=== PATIENT | female | born 1945 | race Hispanic/Latino ===

== ENCOUNTER → 2019-05-14 | Outpatient (CLI) | payer OTHER, MEDICARE ==
[~2019-05-14] MED LIST: ATEN50TA PO; TRAM50TA4 PO
== END | disposition home or self-care (01) ==
LOC: RAH 08:37
PROVIDERS: ATTEND Internal Medicine Cardiovascular Disease
DX: I08.3 Combined rheumatic disorders of mitral, aortic and tricuspid valves (principal)
CPT/HCPCS: 93306

== ENCOUNTER 2019-10-22 14:35 | Emergency (ER) | payer OTHER, MEDICARE ==
[2019-10-22 15:01] LABS: BASOPHILS % (AUTO) 0.5 % (0.0-5.0); EOSINOPHILS % (AUTO) 2.3 % (0.0-8.0); HEMATOCRIT 40.9 % (36-48); LYMPHOCYTES % (AUTO) 9.9 % (21.0-51.0); MEAN CORPUSCULAR HEMOGLOBIN 29.3 pg (27.0-33.0); MEAN CORPUSCULAR HGB CONC 32.8 g/dL (32.0-36.0); MEAN CORPUSCULAR VOLUME 89.3 fL (79-99); MONOCYTES % (AUTO) 6.1 % (3.0-13.0); NEUTROPHILS % (AUTO) 80.7 % (40.0-77.0); PLATELET COUNT (AUTO) 241 K/uL (130-400); RED BLOOD CELL COUNT(AUTO) 4.58 MIL/uL (4.00-5.50); RED CELL DISTRIBUTION WIDTH 12.8 % (11.0-15.5); WHITE BLOOD COUNT (AUTO) 8.2 K/uL (4.8-10.8)
[2019-10-22 15:13] LABS: CREATININE 0.8 mg/dL (0.5-1.5); POTASSIUM 4.8 mmol/L (3.5-5.1)
[2019-10-22] MEDS ORDERED: LIDOCAINE HCL 2% VISCOUS 15 ML UDCUP ONE (15:14)
[2019-10-22] MEDS ORDERED: ASPIRIN 325 MG TABLET ONE (15:14)
[2019-10-22] MEDS ORDERED: MAG HYDROX/AL HYDROX/SIMETH ES 30 ML SUSP UDCUP ONE (15:14)
[2019-10-22 15:18] LABS: ALBUMIN 3.5 g/dL (3.5-5.0); BILIRUBIN,DIRECT 0.1 mg/dL (0.0-0.3); BILIRUBIN,TOTAL 0.6 mg/dL (0.2-1.0); TOTAL PROTEIN, SERUM 6.9 g/dL (6.0-8.3)
[2019-10-22] MEDS ORDERED: ONDANSETRON HCL 4 MG/2 ML VIAL ONE (18:09)
[2019-10-22] MEDS ORDERED: MORPHINE SULFATE 4 MG/1ML SYG ONE (18:10)
[2019-10-22] MEDS ORDERED: NITROGLYCERIN 0.4 MG SL TAB SL ONE (19:29)
== END 2019-10-22 20:02 | disposition home or self-care (01) ==
LOC: EDH 14:35
DX: R10.13 Epigastric pain (principal); I10 Essential (primary) hypertension; Z72.0 Tobacco use
CPT/HCPCS: 36415; 71045; 74176; 80048; 80076; 82550; 83690; 84484 ×2; 85025; 93005 ×2; 96374; 96375; 99285; J2270; J2405

== ENCOUNTER 2019-10-29 17:13 | Inpatient (IN) | payer OTHER, MEDICARE ==
[~2019-10-29] VITALS: Ht 157.5 cm; Wt 55.0 kg
[2019-10-29 18:06] LABS: BASOPHILS % (AUTO) 0.5 % (0.0-5.0); EOSINOPHILS % (AUTO) 2.9 % (0.0-8.0); HEMATOCRIT 40.1 % (36-48); LYMPHOCYTES % (AUTO) 12.2 % (21.0-51.0); MEAN CORPUSCULAR HEMOGLOBIN 29.3 pg (27.0-33.0); MEAN CORPUSCULAR HGB CONC 32.4 g/dL (32.0-36.0); MEAN CORPUSCULAR VOLUME 90.3 fL (79-99); MONOCYTES % (AUTO) 5.3 % (3.0-13.0); NEUTROPHILS % (AUTO) 78.6 % (40.0-77.0); PLATELET COUNT (AUTO) 211 K/uL (130-400); RED BLOOD CELL COUNT(AUTO) 4.44 MIL/uL (4.00-5.50); RED CELL DISTRIBUTION WIDTH 12.5 % (11.0-15.5); WHITE BLOOD COUNT (AUTO) 8.3 K/uL (4.8-10.8)
[2019-10-29 18:20] LABS: CREATININE 0.9 mg/dL (0.5-1.5); POTASSIUM 3.8 mmol/L (3.5-5.1)
[2019-10-29 18:24] LABS: ALBUMIN 3.4 g/dL (3.5-5.0); BILIRUBIN,TOTAL 0.3 mg/dL (0.2-1.0); TOTAL PROTEIN, SERUM 6.7 g/dL (6.0-8.3)
[2019-10-29 18:58] LABS: APPEARANCE,URINE Clear (CLEAR); BILIRUBIN,URINE Negative (NEGATIVE); COLOR,URINE Yellow (YELLOW); GLUCOSE, URINE (UA) Negative (NEGATIVE); KETONES,URINE Negative (NEGATIVE); LEUKOCYTE ESTERASE ,URINE Small (NEGATIVE); NITRATE,URINE Negative (NEGATIVE); OCCULT BLOOD,URINE Negative (NEGATIVE); PH,URINE 5.5 (5.0-8.0); PROTEIN,URINE Negative (NEGATIVE)
[2019-10-29] MEDS ORDERED: ONDANSETRON HCL 4 MG/2 ML VIAL ONE (19:02)
[2019-10-29] MEDS ORDERED: MORPHINE SULFATE 4 MG/1ML SYG ONE ×2 (19:03→21:26)
[2019-10-29 19:31] LABS: BACTERIA,URINE Few /HPF (None Seen); RBC,URINE None Seen /HPF (0-1); SQUAMOUS EPITHELIAL CELL,UR 0-2 /HPF (0-2)
[2019-10-29] MEDS ORDERED: LIDOCAINE HCL 2% VISCOUS 15 ML UDCUP ONE (21:26)
[2019-10-29] MEDS: LACTATED RINGERS 1000ML 1,000 ML IV SCH (22:00)
[2019-10-29] MEDS ORDERED: METOCLOPRAMIDE 10 MG/2 ML VIAL IVP PRN (22:00)
[2019-10-29] MEDS ORDERED: GLUCAGON 1MG KIT 1 MG ML IM PRN (22:00)
[2019-10-29] MEDS ORDERED: ONDANSETRON HCL 4 MG/2 ML VIAL IVP PRN (22:00)
[2019-10-29] MEDS ORDERED: DEXTROSE 50%-WATER 50 ML DISP.SYRIN IV PRN (22:00)
[2019-10-29] MEDS ORDERED: ACETAMINOPHEN 650 MG SUPPOSITORY RC PRN (22:00)
[2019-10-29 22:30] VITALS: BP 156/57
[2019-10-30] VITALS: BP 134/50
[2019-10-30] MEDS: MORPHINE SULFATE 4 MG/1ML SYG IVP PRN ×2 (02:56→07:55)
[2019-10-30 04:00] VITALS: BP 141/56
[2019-10-30 04:38] LABS: BASOPHILS % (AUTO) 0.3 % (0.0-5.0); EOSINOPHILS % (AUTO) 2.8 % (0.0-8.0); HEMATOCRIT 36.8 % (36-48); LYMPHOCYTES % (AUTO) 15.9 % (21.0-51.0); MEAN CORPUSCULAR HEMOGLOBIN 29.4 pg (27.0-33.0); MEAN CORPUSCULAR HGB CONC 32.9 g/dL (32.0-36.0); MEAN CORPUSCULAR VOLUME 89.3 fL (79-99); MONOCYTES % (AUTO) 7.1 % (3.0-13.0); NEUTROPHILS % (AUTO) 73.6 % (40.0-77.0); PLATELET COUNT (AUTO) 187 K/uL (130-400); RED BLOOD CELL COUNT(AUTO) 4.12 MIL/uL (4.00-5.50); RED CELL DISTRIBUTION WIDTH 12.7 % (11.0-15.5); WHITE BLOOD COUNT (AUTO) 6.2 K/uL (4.8-10.8)
[2019-10-30 04:43] LABS: CREATININE 0.7 mg/dL (0.5-1.5); PHOSPHORUS 3.1 mg/dL (2.5-4.9)
[2019-10-30] MEDS: INSULIN R NPO SS1/2 SQ SCH ×4 (06:00→17:43)
[2019-10-30 08:00] VITALS: BP 158/60
--- NOTE | 2019-10-30 08:00 | NUR ---
AM SHIFT ASSESSMENT. NG IN PLACE VIA LT. NARE, CONNECTED TO LOW WALL INTERMITTENT SUCTION, PLACEMENT VERIFIED WITH AIR BOLUS.
[2019-10-30] MEDS ORDERED: FAMOTIDINE/PF 20 MG/2 ML VIAL IV SCH (09:00)
[2019-10-30] MEDS ORDERED: CEFTRIAXONE SODIUM 500 MG VIAL IV SCH (09:00)
--- NOTE | 2019-10-30 11:11 | NUR ---
GI CONSULT ORDERED, DR. FIORELLA TREVINO
--- NOTE | 2019-10-30 11:19 | NUR ---
DR. BARROS RETURNED CALL, ACCT. # GIVEN.
--- NOTE | 2019-10-30 11:42 | NUR ---
NG PLACEMENT CHECKED AGAIN, THIS TIME WITH ASPIRATION WATER. PLACEMENT AGAIN VERIFIED, PT. UNHAPPY AND WANTS TO SEE A
[2019-10-30 12:00] VITALS: BP 143/54
[2019-10-30] MEDS: FAMOTIDINE/PF 20 MG/2 ML VIAL IV SCH ×3 (13:11→22:05)
[2019-10-30] MEDS: CEFTRIAXONE SODIUM 1 GM IV SCH (13:12)
[2019-10-30] MEDS: LACTATED RINGERS 1000ML 1,000 ML IV SCH (13:13)
[2019-10-30] MEDS: HYDROMORPHONE HCL 0.5 MG/0.5 ML ML IVP PRN ×3 (13:37→22:11)
--- NOTE | 2019-10-30 14:54 | NUR ---
[id number] patient signed IM Letter, I faxed IM Letter to [phone] and placed in chart under consent tab
[2019-10-30 16:00] VITALS: BP 185/58
[2019-10-30] MEDS: METRONIDAZOLE 500MG/100ML BAG 100 ML IV SCH (17:31)
--- NOTE | 2019-10-30 18:40 | NUR ---
JUST NOW PT. PULLED OUT NGT AND PCP REPORTS SHE IS DRINKING COFFEE. HAS BEEN FOLLOWING ME AROUND ALL DAY WANTING TUBE OUT AND BEING VERY HUNGRY. COULD NOT MAKE HER UNDERSTAND REASON FOR TUBE.
[2019-10-30 19:00] VITALS: BP 185/60
[2019-10-31] VITALS (7 sets, daily range): BP systolic 142–186; BP diastolic 53–65
[2019-10-31] MEDS: LACTATED RINGERS 1000ML 1,000 ML IV SCH ×2 (00:40→14:00)
[2019-10-31] MEDS: METRONIDAZOLE 500MG/100ML BAG 100 ML IV SCH ×2 (01:44→09:29)
[2019-10-31 04:55] LABS: HEMATOCRIT 35.7 % (36-48); MEAN CORPUSCULAR HEMOGLOBIN 30.1 pg (27.0-33.0); MEAN CORPUSCULAR HGB CONC 33.3 g/dL (32.0-36.0); MEAN CORPUSCULAR VOLUME 90.2 fL (79-99); PLATELET COUNT (AUTO) 167 K/uL (130-400); RED BLOOD CELL COUNT(AUTO) 3.96 MIL/uL (4.00-5.50); RED CELL DISTRIBUTION WIDTH 12.7 % (11.0-15.5); WHITE BLOOD COUNT (AUTO) 5.6 K/uL (4.8-10.8)
[2019-10-31 05:20] LABS: ALBUMIN 2.9 g/dL (3.5-5.0); BILIRUBIN,TOTAL 0.8 mg/dL (0.2-1.0); CREATININE 0.8 mg/dL (0.5-1.5); MAGNESIUM 1.7 mg/dL (1.80-2.40); PHOSPHORUS 3.9 mg/dL (2.5-4.9); POTASSIUM 4.1 mmol/L (3.5-5.1); TOTAL PROTEIN, SERUM 5.8 g/dL (6.0-8.3)
[2019-10-31] MEDS: INSULIN R NPO SS1/2 SQ SCH ×4 (06:00→18:00)
[2019-10-31 06:44] LABS: BAND NEUTROPHILS % (MANUAL) 2 % (0-2); BASOPHILS % (MANUAL) 1 % (0-2); EOSINOPHILS % (MANUAL) 6 % (1-6); LYMPHOCYTES % (MANUAL) 13 % (22-44); MAN.DIFF COMMENT-IMPRESSION MANUAL DIFFERENTIAL; MONOCYTES % (MANUAL) 6 % (2-9); PLATELET MORPHOLOGY COMMENT ADEQUATE; REACTIVE LYMPHOCYTES 1 % (0-0); SEGMENTED NEUTROPHILS % 71 % (40-70)
[2019-10-31] MEDS: CEFTRIAXONE SODIUM 1 GM IV SCH (09:30)
[2019-10-31] MEDS: FAMOTIDINE/PF 20 MG/2 ML VIAL IV SCH (09:30)
[2019-10-31] MEDS: AMLODIPINE BESYLATE 5 MG TAB PO SCH (09:45)
[2019-10-31] MEDS: HYDRALAZINE HCL 20 MG/ML VIAL IV PRN ×2 (09:45→23:14)
[2019-10-31] MEDS ORDERED: MAGNESIUM 2GM PREMIX 50ML 50 ML IV SCH (09:45)
[2019-10-31] MEDS ORDERED: HYDRALAZINE HCL 20 MG/ML VIAL ONE (10:07)
[2019-10-31] MEDS ORDERED: DOCUSATE SODIUM 100 MG CAP PO SCH (10:30)
[2019-10-31] MEDS ORDERED: NITROGLYCERIN 0.4 MG SL TAB SL ONE (10:33)
[2019-10-31] MEDS ORDERED: NITROGLYCERIN 0.4 MG SL TAB SL PRN (10:45)
[2019-10-31] MEDS ORDERED: MORPHINE SULFATE 5 MG/ML VIAL ONE (10:58)
[2019-10-31] MEDS ORDERED: ASPIRIN 325 MG TABLET ONE (10:59)
[2019-10-31] MEDS ORDERED: ASPIRIN 325MG EC TAB 325 MG TABLET.DR PO SCH (11:00)
[2019-10-31] MEDS ORDERED: MORPHINE SULFATE 5 MG/ML VIAL IM SCH (11:00)
--- NOTE | 2019-10-31 11:14 | NUR ---
notified dr. johnston of the consult. explained to dr. johnston that the patient is having chest as the patient claim that after the hydralazine 10 mg that I gave her for elevated blood pressure. notified dr. johnston that the patient is on oxygen 2 liters, 2x of nitro sublingual, morphine 2 mg, aspirin 325mg, troponin and ck has already been drawn. I also read the result of ekg to dr. johnston. he verbalized that to put the patient under dr. winnie rodríguez census, since the patient is the patient of dr. kelvin rodríguez and that he will come to see the patient today.
[2019-10-31] MEDS ORDERED: LIDOCAINE HCL 2% VISCOUS 30 ML, MAG HYDROX/AL HYDROX/SIMETH 30 ML, BELLADONNA-PHENOBARB... PO SCH ×3 (11:45)
[2019-10-31] MEDS ORDERED: LIDOCAINE HCL 2% VISCOUS 30 ML, MAG HYDROX/AL HYDROX/SIMETH 30 ML, DICYCLOMINE HCL 20 MG PO PRN ×3 (12:00)
[2019-10-31] MEDS ORDERED: COMPOUND PO MISCELLANEOUS 1 EACH MISC MISC PRN (12:00)
[2019-10-31] MEDS ORDERED: HYDROCODONE/ACETAMINOPHEN 5/325 MG TAB PO PRN (13:00)
[2019-10-31] MEDS ORDERED: IBUPROFEN 400 MG TABLET PO PRN (15:15)
[2019-10-31] MEDS ORDERED: IBUPROFEN 400 MG TABLET PO SCH (15:15)
[2019-10-31] MEDS: IBUPROFEN 400 MG TABLET PO SCH ×2 (16:55→18:31)
--- NOTE | 2019-10-31 17:19 | NUR ---
D/C PLAN KIMBERLY spoke to pt regarding d/c planning. Pt lives alone. States she attends [employer]. Denies having any home health services or provider. KIMBERLY explained MD recommendations for short term snf/rehab. Pt declined. States she has chronic muscle and joint pain. Plan to home. No needs verbalized or identified. CM to f/u. Addendum: 10/31/19 at 1724 by IRAJ QUARLES CM Amended: Links added.
[2019-10-31] MEDS ORDERED: PANTOPRAZOLE SODIUM 40 MG TABLET.DR PO SCH (19:15)
[2019-10-31] MEDS ORDERED: TRAMADOL HCL 50 MG TABLET PO PRN (19:15)
[2019-10-31] MEDS: KETOROLAC TROMETHAMINE 15MG/ML IM PRN (20:23)
[2019-11-01 03:00] VITALS: BP 155/63
[2019-11-01] MEDS: LACTATED RINGERS 1000ML 1,000 ML IV SCH ×2 (03:20→16:27)
[2019-11-01] MEDS: KETOROLAC TROMETHAMINE 15MG/ML IM PRN ×2 (04:11→08:58)
[2019-11-01] MEDS: INSULIN R NPO SS1/2 SQ SCH ×5 (05:45→23:54)
[2019-11-01 07:20] VITALS: BP 148/67
[2019-11-01] MEDS: AMLODIPINE BESYLATE 5 MG TAB PO SCH (08:58)
[2019-11-01] MEDS: PANTOPRAZOLE SODIUM 40 MG TABLET.DR PO SCH (08:58)
[2019-11-01 12:00] VITALS: BP 153/60
[2019-11-01] MEDS ORDERED: ACETAMINOPHEN-CODEINE 300/30MG TAB PO PRN (13:15)
[2019-11-01 13:20] LABS: CREATININE 0.8 mg/dL (0.5-1.5); POTASSIUM 3.7 mmol/L (3.5-5.1)
[2019-11-01] MEDS ORDERED: MORPHINE SULFATE 2 MG/ML 1ML SYG IVP PRN (14:00)
[2019-11-01 16:00] VITALS: BP 151/59
[2019-11-01] MEDS: TRAMADOL HCL 50 MG TABLET PO PRN (19:50)
[2019-11-01 20:00] VITALS: BP 145/52
--- NOTE | 2019-11-01 23:54 | NUR ---
Patient refused fingerstick check
[2019-11-02] VITALS: BP 145/57
[2019-11-02 03:44] VITALS: BP 141/60
[2019-11-02] MEDS: TRAMADOL HCL 50 MG TABLET PO PRN (04:34)
[2019-11-02 05:59] LABS: HEMATOCRIT 37.3 % (36-48); MEAN CORPUSCULAR HEMOGLOBIN 29.2 pg (27.0-33.0); MEAN CORPUSCULAR HGB CONC 32.2 g/dL (32.0-36.0); MEAN CORPUSCULAR VOLUME 90.8 fL (79-99); PLATELET COUNT (AUTO) 191 K/uL (130-400); RED BLOOD CELL COUNT(AUTO) 4.11 MIL/uL (4.00-5.50); RED CELL DISTRIBUTION WIDTH 12.7 % (11.0-15.5); WHITE BLOOD COUNT (AUTO) 4.8 K/uL (4.8-10.8)
[2019-11-02] MEDS: LACTATED RINGERS 1000ML 1,000 ML IV SCH (06:00)
[2019-11-02] MEDS: INSULIN R NPO SS1/2 SQ SCH (06:00)
[2019-11-02 06:16] LABS: CREATININE 0.8 mg/dL (0.5-1.5); POTASSIUM 4.3 mmol/L (3.5-5.1)
[2019-11-02 08:16] VITALS: BP 168/57
[2019-11-02] MEDS ORDERED: PANT40TA PO (08:57)
[2019-11-02] MEDS ORDERED: AMLO5TAB4 PO (08:57)
[2019-11-02] MEDS: PANTOPRAZOLE SODIUM 40 MG TABLET.DR PO SCH (10:20)
[2019-11-02] MEDS: AMLODIPINE BESYLATE 5 MG TAB PO SCH (10:20)
[2019-11-02 12:04] VITALS: BP 157/59
[2019-11-02] MEDS ORDERED: CALCIUM CARBONATE 500 MG/5 ML ML PO SCH (13:30)
--- NOTE | 2019-11-02 13:40 | NUR ---
DISCHARGE Patient c/o hard stools. AKOSUA Stringer stated to give her prune juice during her rounds with Dr. Auguste right before discharge. Patient refused prune juice and refused to sign refusal. Stated before coming to hospital she had loose stools for 4 days and does not want to now go back home back with loose stools again.
== END 2019-11-02 13:45 | disposition home or self-care (01) | DRG 684 ==
LOC: EDH 17:13 → EDHIP 20:00 → OBSVTOIN 20:00 → 3BH 22:35
PROVIDERS: ADMIT Internal Medicine Pulmonary Disease; ATTEND Internal Medicine Pulmonary Disease
PROC: 0D9670Z Drainage of Stomach with Drainage Device, Via Natural or Artificial Opening (ICD-10-PCS; principal; 2019-10-29)
DX: N17.9 Acute kidney failure, unspecified (principal); E83.42 Hypomagnesemia; I25.10 Atherosclerotic heart disease of native coronary artery without angina pectoris; R07.9 Chest pain, unspecified; R00.1 Bradycardia, unspecified; Z79.899 Other long term (current) drug therapy; Z82.49 Family history of ischemic heart disease and other diseases of the circulatory system; Z95.5 Presence of coronary angioplasty implant and graft
CPT/HCPCS: 36415; 71045; 74018; 74176; 80048; 80053; 81001; 82150; 82550; 82948; 83690; 83735; 84100; 84484; 85025; 85027; 86431; 87088; 93005; G0378; J0360; J0696; J1170; J1885; J2270; J2405; J3475; J3490; J7120

== ENCOUNTER 2019-11-19 15:41 | Observation (INO) | payer OTHER, MEDICARE ==
[~2019-11-19] VITALS: Ht 154.9 cm; Wt 54.5 kg
[~2019-11-19 15:41] MED LIST changes: +AMLO5TAB4 PO; -ATEN50TA PO; +PANT40TA PO
[2019-11-19 16:35] LABS: BASOPHILS % (AUTO) 0.4 % (0.0-5.0); EOSINOPHILS % (AUTO) 3.3 % (0.0-8.0); HEMATOCRIT 38.3 % (36-48); LYMPHOCYTES % (AUTO) 13.6 % (21.0-51.0); MEAN CORPUSCULAR HGB CONC 33.2 g/dL (32.0-36.0); MEAN CORPUSCULAR VOLUME 90.3 fL (79-99); MONOCYTES % (AUTO) 6.5 % (3.0-13.0); NEUTROPHILS % (AUTO) 75.7 % (40.0-77.0); PLATELET COUNT (AUTO) 179 K/uL (130-400); RED BLOOD CELL COUNT(AUTO) 4.24 MIL/uL (4.00-5.50); RED CELL DISTRIBUTION WIDTH 13.2 % (11.0-15.5); WHITE BLOOD COUNT (AUTO) 5.5 K/uL (4.8-10.8)
[2019-11-19 16:51] LABS: INR 0.9 (0.85-1.15); PARTIAL THROMBOPLASTIN TIME 21.5 SEC (26.3-35.5); PROTHROMBIN TIME 9.8 SEC (9.6-11.6)
[2019-11-19 16:53] LABS: CREATININE 0.9 mg/dL (0.5-1.5); POTASSIUM 3.4 mmol/L (3.5-5.1)
[2019-11-19 16:58] LABS: BILIRUBIN,TOTAL 0.3 mg/dL (0.2-1.0); TOTAL PROTEIN, SERUM 6.1 g/dL (6.0-8.3)
[2019-11-19 16:59] LABS: AMYLASE 47 U/L (25-115); CREATINE KINASE, TOTAL 69 U/L (21-232); LIPASE 127 U/L (114-286)
[2019-11-19] MEDS ORDERED: SODIUM CHLORIDE 0.9% 100 ML IV ONE (17:15)
[2019-11-19] MEDS ORDERED: METOPROLOL TARTRATE 1 MG/ML 5ML VIAL IV ONE (17:18)
[2019-11-19] MEDS ORDERED: HYDRALAZINE HCL 20 MG/ML VIAL IV PRN (18:30)
[2019-11-19] MEDS ORDERED: PANTOPRAZOLE SODIUM 80 MG in NS 100ML IVP SCH (18:30)
[2019-11-19] MEDS ORDERED: DIATR MEGLU/DIATRIZOATE SODIUM 30 ML BOTTLE ONE (18:54)
[2019-11-19] MEDS ORDERED: HYDRALAZINE HCL 20 MG/ML VIAL ONE ×2 (19:18→20:45)
[2019-11-19] MEDS ORDERED: ONDANSETRON HCL 4 MG/2 ML VIAL ONE (19:18)
[2019-11-19] MEDS: SUCRALFATE 1 GM TABLET PO SCH (21:00)
[2019-11-19 21:10] LABS: APPEARANCE,URINE Clear (CLEAR); BILIRUBIN,URINE Negative (NEGATIVE); COLOR,URINE Yellow (YELLOW); GLUCOSE, URINE (UA) Negative (NEGATIVE); KETONES,URINE Negative (NEGATIVE); LEUKOCYTE ESTERASE ,URINE Trace (NEGATIVE); NITRATE,URINE Negative (NEGATIVE); OCCULT BLOOD,URINE Negative (NEGATIVE); PH,URINE 7.5 (5.0-8.0); PROTEIN,URINE Negative (NEGATIVE)
[2019-11-19 21:21] LABS: BACTERIA,URINE Few /HPF (None Seen); RBC,URINE None Seen /HPF (0-1); SQUAMOUS EPITHELIAL CELL,UR None Seen /HPF (0-2); WBC,URINE 0-1 /HPF (0-1)
[2019-11-19] MEDS ORDERED: SUCRALFATE 1 GM TABLET ONE (21:27)
[2019-11-19 21:45] VITALS: BP 156/57
--- NOTE | 2019-11-19 22:59 | NUR ---
PT COMPLAINING OF CHEST PAIN, MD BLACKJACK SUPERVISOR PAGED PT STATES SHE TOOK HER OWN SUB NITRO DOWNSTAIRS IN THE EMGERGENCY ROOM CALLED ER NURSE HUNTER, HE SAYS HE DOESN'T KNOW ANYTHING ABOUT IT
[2019-11-19] MEDS ORDERED: ASPI-555 PO (23:06)
[2019-11-19] MEDS ORDERED: NITR0.4T50 SL (23:06)
[2019-11-19] MEDS ORDERED: TRAM50TA4 PO (23:06)
[2019-11-19] MEDS ORDERED: NITROGLYCERIN 1GM/1 INCH PACKET TD ONE (23:24)
[2019-11-19 23:42] LABS: CREATINE KINASE, TOTAL 71 U/L (21-232); MYOGLOBIN 38 ng/mL (10-92); TROPONIN I < 0.04 ng/mL (0.00-0.06)
[2019-11-20] VITALS (8 sets, daily range): BP systolic 117–165; BP diastolic 52–78
[2019-11-20 00:39] LABS: HEMATOCRIT 37.7 % (36-48); MEAN CORPUSCULAR HGB CONC 33.7 g/dL (32.0-36.0); MEAN CORPUSCULAR VOLUME 89.1 fL (79-99); PLATELET COUNT (AUTO) 203 K/uL (130-400); RED BLOOD CELL COUNT(AUTO) 4.23 MIL/uL (4.00-5.50); RED CELL DISTRIBUTION WIDTH 13.2 % (11.0-15.5); WHITE BLOOD COUNT (AUTO) 6.4 K/uL (4.8-10.8)
[2019-11-20 04:51] LABS: HEMATOCRIT 38.3 % (36-48); MEAN CORPUSCULAR HEMOGLOBIN 29.1 pg (27.0-33.0); MEAN CORPUSCULAR HGB CONC 32.9 g/dL (32.0-36.0); MEAN CORPUSCULAR VOLUME 88.5 fL (79-99); PLATELET COUNT (AUTO) 193 K/uL (130-400); RED BLOOD CELL COUNT(AUTO) 4.33 MIL/uL (4.00-5.50); RED CELL DISTRIBUTION WIDTH 13.2 % (11.0-15.5); WHITE BLOOD COUNT (AUTO) 7.2 K/uL (4.8-10.8)
[2019-11-20 05:09] LABS: CREATININE 0.7 mg/dL (0.5-1.5); POTASSIUM 3.7 mmol/L (3.5-5.1)
[2019-11-20] MEDS: NITROGLYCERIN 1GM/1 INCH PACKET TD SCH ×4 (05:26→18:32)
--- NOTE | 2019-11-20 05:37 | NUR ---
, PHARMACY STOCK CLERK HAS NOT RETURN CALL PAGED HOUSE SUP, LINE IS BUSY
--- NOTE | 2019-11-20 05:38 | NUR ---
RADHA FROM ANSWERING SERVICES,STATED SHE PAGED DR. JAMES SINCE KALIA BRIONES IS NOT ANSWERING HIS PHONE\
--- NOTE | 2019-11-20 05:40 | NUR ---
DR. RM CALLED BACK , EXPLAINED THE SITUATION THAT PT HAD TAKEN HER OWN NITROSUB LINGUAL IN ER, AND HAD COMPLAIN TO CHEST PAIN DOWN THERE, HOWEVER, THE NURSE IN THE ER HUNTER STATES HE WAS NEVER NOTIFIED OF SUCH . ALSO AWARE OF PREVIOUS EPISODE OF CHEST PAIN 11/19/19- ON THE FLOOR AND THE ORDERS GIVEN BY ANSELMO AND ALL HER LAB WORK . INCLUDING THE LAST TROPONIN OF 0.08. AWARE THAT PT IS VERY AGGITATED AND ANXIOUS, BUT SHE DOES HAVE SMALL MOMENTS WHEN SHE COMPLAINS THAT SHE IS COLD, OR THE BLOOD PRESSURE COUGH IS TOO TIGHT AND STOPS COMPLAINING OF PAIN. AWARE OF PT'S MEDICAL HX , AND HOME MEDICATIONS CPOE ORDERS TO FOLLOW
[2019-11-20] MEDS ORDERED: METOPROLOL TARTRATE 25 MG TAB ONE (05:54)
[2019-11-20] MEDS ORDERED: MORPHINE SULFATE 2 MG/ML 1ML SYG ONE (05:54)
[2019-11-20] MEDS: METOPROLOL TARTRATE 25 MG TAB PO SCH ×3 (06:00→20:00)
[2019-11-20] MEDS ORDERED: MORPHINE SULFATE 2 MG/ML 1ML SYG IVP ONE (06:00)
--- NOTE | 2019-11-20 06:17 | NUR ---
PT SLEEPING, NOT COMPLAINING OF CHEST PAIN
--- NOTE | 2019-11-20 08:00 | NUR ---
CARDIOLOGY CONSULT PATIENT SEEN BY DR HUSSEIN FOR ELEVATED TROPONIN OF 1.4, PATIENT C/O SEVERE CHEST PAIN LAST NIGHT. DENIES HAVING CHEST PAIN AT THIS TIME. PATIENT WAS ALSO ADMITTED FOR POSSIBLE GI BLEED, SO DR HUSSEIN DID NOT RECOMMEND ANTICOAGULATION AT THIS TIME.
[2019-11-20] MEDS: SUCRALFATE 1 GM TABLET PO SCH ×3 (08:59→20:00)
[2019-11-20] MEDS ORDERED: ASPIRIN 325MG EC TAB 325 MG TABLET.DR PO SCH (10:45)
[2019-11-20] MEDS ORDERED: HEPARIN 25000 UNITS/250 ML D5W 250 ML IV SCH (10:45)
[2019-11-20] MEDS ORDERED: TICAGRELOR 90 MG TABLET PO SCH ×2 (10:45→21:00)
[2019-11-20 11:21] LABS: BASOPHILS % (AUTO) 0.4 % (0.0-5.0); EOSINOPHILS % (AUTO) 3.1 % (0.0-8.0); HEMATOCRIT 37.6 % (36-48); LYMPHOCYTES % (AUTO) 11.1 % (21.0-51.0); MEAN CORPUSCULAR HEMOGLOBIN 29.7 pg (27.0-33.0); MEAN CORPUSCULAR HGB CONC 33.2 g/dL (32.0-36.0); MEAN CORPUSCULAR VOLUME 89.3 fL (79-99); MONOCYTES % (AUTO) 5.8 % (3.0-13.0); PLATELET COUNT (AUTO) 207 K/uL (130-400); RED BLOOD CELL COUNT(AUTO) 4.21 MIL/uL (4.00-5.50); RED CELL DISTRIBUTION WIDTH 13.3 % (11.0-15.5); WHITE BLOOD COUNT (AUTO) 7.1 K/uL (4.8-10.8)
[2019-11-20] MEDS: ACETAMINOPHEN 325 MG TAB PO PRN ×2 (11:36→16:37)
[2019-11-20 12:19] LABS: INR 0.89 (0.85-1.15); PARTIAL THROMBOPLASTIN TIME 24.9 SEC (26.3-35.5); PROTHROMBIN TIME 9.7 SEC (9.6-11.6)
[2019-11-20] MEDS ORDERED: ONDANSETRON HCL 4 MG/2 ML VIAL IVP PRN (12:45)
[2019-11-20] MEDS ORDERED: IPRATROPIUM/ALBUTEROL SULFATE 3 ML SOLUTION IH PRN (12:45)
[2019-11-20] MEDS ORDERED: NITROGLYCERIN 0.4 MG SL TAB SL PRN (12:45)
[2019-11-20] MEDS ORDERED: HYDRALAZINE HCL 20 MG/ML VIAL IV PRN (12:45)
[2019-11-20] MEDS ORDERED: LACTULOSE 20 GM/30 ML UDCUP PO PRN (12:45)
--- NOTE | 2019-11-20 13:00 | NUR ---
GI CONSULT DR PERSAUD CONSULTED FOR POSSIBLE GI BLEED. HOWEVER PATIENT HAS A STABLE HEMOGLOBIN AT 12.7, PATIENT REPORTED TO HAVE HAD SEVERAL DARK STOOLS AT HOME BUT ALSO STATED SHE HAS BEEN TAKING PEPTO BISMOL FOR ABDOMINAL PAIN. DR PERSAUD RECOMMENDED FOR PATIENT TO BE ON PROTONIX AND FOLLOW UP OUTPATIENT.
[2019-11-20] MEDS: LISINOPRIL 10 MG TABLET PO SCH (14:32)
--- NOTE | 2019-11-20 15:22 | NUR ---
INITIAL SW spoke to patient. She states she lives alone but her son, Cirilo Dutta comes to stay with her as needed. Patient could not remember his phone number. Patient states she has no home services. DME: walker with seat, shower chair. Patient states she is able to complete ADL's independently but does not drive. PCP is Dr. Gerber Austin. [facility] in [place]. DCP is home. Addendum: 11/20/19 at 1528 by NATE JOHN SS Amended: Links added.
--- NOTE | 2019-11-20 17:00 | NUR ---
CM NOTE Spoke to pt requested information on senior care placement, provided list of snf-nh in the area. [facility] is not interested in transferring at this point, but may want to later on after she discussed with her PCP as OP. [facility] for now feels safe to return home. and her adult children assist as needed. no dc needs.
[2019-11-20] MEDS: TRAMADOL HCL 50 MG TABLET PO PRN (18:37)
[2019-11-20] MEDS: MORPHINE SULFATE 2 MG/ML 1ML SYG IV PRN (19:59)
[2019-11-20] MEDS: ISOSORBIDE MONO 30MG TAB SR PO SCH (20:00)
[2019-11-20] MEDS: PANTOPRAZOLE 40 MG/VIAL IV SCH (20:00)
[2019-11-21 00:55] VITALS: BP 176/65
[2019-11-21] MEDS: MORPHINE SULFATE 2 MG/ML 1ML SYG IV PRN ×2 (02:23→10:39)
[2019-11-21 04:22] VITALS: BP 136/47
[2019-11-21 04:55] LABS: HEMATOCRIT 39.5 % (36-48); MEAN CORPUSCULAR HEMOGLOBIN 29.5 pg (27.0-33.0); MEAN CORPUSCULAR HGB CONC 32.7 g/dL (32.0-36.0); MEAN CORPUSCULAR VOLUME 90.4 fL (79-99); PLATELET COUNT (AUTO) 215 K/uL (130-400); RED BLOOD CELL COUNT(AUTO) 4.37 MIL/uL (4.00-5.50); RED CELL DISTRIBUTION WIDTH 13.4 % (11.0-15.5); WHITE BLOOD COUNT (AUTO) 9.4 K/uL (4.8-10.8)
[2019-11-21 05:06] LABS: CREATININE 0.9 mg/dL (0.5-1.5); POTASSIUM 3.6 mmol/L (3.5-5.1)
[2019-11-21] MEDS: NITROGLYCERIN 1GM/1 INCH PACKET TD SCH ×3 (06:00→12:00)
[2019-11-21 08:00] VITALS: BP 160/60
[2019-11-21] MEDS ORDERED: ASPIRIN 81MG TAB.CHEW PO SCH (09:00)
[2019-11-21] MEDS ORDERED: ASPIRIN 81 MG EC TAB PO SCH (09:00)
[2019-11-21] MEDS ORDERED: ISOSORBIDE MONO 30MG TAB SR PO SCH (09:00)
[2019-11-21] MEDS: PANTOPRAZOLE 40 MG/VIAL IV SCH (09:52)
[2019-11-21] MEDS: ISOSORBIDE MONO 30MG TAB SR PO SCH (09:53)
[2019-11-21] MEDS: SUCRALFATE 1 GM TABLET PO SCH ×2 (09:53→14:00)
[2019-11-21] MEDS: METOPROLOL TARTRATE 25 MG TAB PO SCH (09:54)
[2019-11-21] MEDS: LISINOPRIL 10 MG TABLET PO SCH (09:54)
[2019-11-21 11:00] VITALS: BP 163/62
[2019-11-21] MEDS ORDERED: PANT40TA25 PO (12:05)
[2019-11-21] MEDS ORDERED: ROSU10TA28 PO (12:26)
[2019-11-21] MEDS: TRAMADOL HCL 50 MG TABLET PO PRN (12:39)
[2019-11-21 16:00] VITALS: BP 155/84
== END 2019-11-21 17:28 | disposition home or self-care (01) ==
LOC: EDH 15:41 → EDHIP 17:40 → 3CH 21:12
PROVIDERS: ADMIT Internal Medicine Pulmonary Disease; ATTEND Internal Medicine Pulmonary Disease
DX: K92.1 Melena (principal); R07.89 Other chest pain; I21.A1 Myocardial infarction type 2; I25.5 Ischemic cardiomyopathy; I25.10 Atherosclerotic heart disease of native coronary artery without angina pectoris; I11.0 Hypertensive heart disease with heart failure; I50.22 Chronic systolic (congestive) heart failure; E78.5 Hyperlipidemia, unspecified; E78.00 Pure hypercholesterolemia, unspecified; Z95.1 Presence of aortocoronary bypass graft; Z79.82 Long term (current) use of aspirin; Z79.899 Other long term (current) drug therapy
CPT/HCPCS: 36415 ×3; 71045 ×2; 74176; 80048 ×2; 80053; 81001; 82150; 82270; 82550 ×2; 82948; 83690; 83874; 84484 ×4; 85025 ×2; 85027 ×3; 85610 ×2; 85730 ×2; 86850; 86900; 86901; 93005 ×4; 93306; 96374; 96375; 96376; 99285; C9113 ×3; G0378 ×48; J0360 ×3; J2405 ×2; J3490; Q9963

== ENCOUNTER → 2019-12-03 | Outpatient (CLI) | payer OTHER, MEDICARE ==
[~2019-12-03] MED LIST changes: -AMLO5TAB4 PO; +ASPI-555 PO; +NITR0.4T50 SL; -PANT40TA PO; +PANT40TA25 PO; +ROSU10TA28 PO
== END | disposition home or self-care (01) ==
LOC: RAH 09:18
PROVIDERS: ATTEND Internal Medicine Gastroenterology
DX: R10.13 Epigastric pain (principal); I70.0 Atherosclerosis of aorta; Z90.49 Acquired absence of other specified parts of digestive tract
CPT/HCPCS: 76700

== ENCOUNTER 2019-12-04 17:04 | Emergency (ER) | payer OTHER, MEDICARE ==
[2019-12-04] MEDS ORDERED: ONDANSETRON HCL 4 MG/2 ML VIAL ONE ×2 (17:54→19:44)
[2019-12-04] MEDS ORDERED: MORPHINE SULFATE 4 MG/1ML SYG ONE (17:55)
[2019-12-04 17:56] LABS: BASOPHILS % (AUTO) 0.8 % (0.0-5.0); EOSINOPHILS % (AUTO) 2.9 % (0.0-8.0); HEMATOCRIT 44.1 % (36-48); LYMPHOCYTES % (AUTO) 20.2 % (21.0-51.0); MEAN CORPUSCULAR HEMOGLOBIN 29.3 pg (27.0-33.0); MEAN CORPUSCULAR HGB CONC 33.1 g/dL (32.0-36.0); MEAN CORPUSCULAR VOLUME 88.6 fL (79-99); MONOCYTES % (AUTO) 6.3 % (3.0-13.0); NEUTROPHILS % (AUTO) 69.3 % (40.0-77.0); PLATELET COUNT (AUTO) 300 K/uL (130-400); RED BLOOD CELL COUNT(AUTO) 4.98 MIL/uL (4.00-5.50); RED CELL DISTRIBUTION WIDTH 13.3 % (11.0-15.5); WHITE BLOOD COUNT (AUTO) 7.3 K/uL (4.8-10.8)
[2019-12-04 18:09] LABS: INR 0.89 (0.85-1.15); PARTIAL THROMBOPLASTIN TIME 26.1 SEC (26.3-35.5); POTASSIUM 3.6 mmol/L (3.5-5.1); PROTHROMBIN TIME 9.7 SEC (9.6-11.6)
[2019-12-04 18:13] LABS: ALBUMIN 3.7 g/dL (3.5-5.0); BILIRUBIN,DIRECT 0.1 mg/dL (0.0-0.3); BILIRUBIN,TOTAL 0.7 mg/dL (0.2-1.0); TOTAL PROTEIN, SERUM 7.5 g/dL (6.0-8.3)
[2019-12-04] MEDS ORDERED: LABETALOL 20 MG/4 ML DISP.SYRIN IV ONE (19:08)
[2019-12-04] MEDS ORDERED: LIDOCAINE HCL 2% VISCOUS 15 ML UDCUP ONE (19:25)
[2019-12-04] MEDS ORDERED: MAG HYDROX/AL HYDROX/SIMETH ES 30 ML SUSP UDCUP ONE (19:25)
[2019-12-04 19:35] LABS: APPEARANCE,URINE Turbid (CLEAR); BILIRUBIN,URINE Negative (NEGATIVE); COLOR,URINE Dark Yellow (YELLOW); GLUCOSE, URINE (UA) Negative (NEGATIVE); KETONES,URINE Trace mg/dL (NEGATIVE); LEUKOCYTE ESTERASE ,URINE Moderate (NEGATIVE); NITRATE,URINE Positive (NEGATIVE); OCCULT BLOOD,URINE Trace (NEGATIVE); PROTEIN,URINE POS 2+ mg/dL (NEGATIVE)
[2019-12-04 19:42] LABS: BACTERIA,URINE Moderate /HPF (None Seen); RBC,URINE None Seen /HPF (0-1)
[2019-12-04] MEDS ORDERED: DICYCLOMINE HCL 10 MG/ML 2ML AMP IM ONE (19:45)
[2019-12-04] MEDS ORDERED: MORPHINE SULFATE 2 MG/ML 1ML SYG ONE (21:08)
== END 2019-12-04 21:52 | disposition home or self-care (01) ==
LOC: EDH 17:04
DX: R10.84 Generalized abdominal pain (principal); R11.0 Nausea; I10 Essential (primary) hypertension; E78.00 Pure hypercholesterolemia, unspecified; Z72.0 Tobacco use; Z95.1 Presence of aortocoronary bypass graft
CPT/HCPCS: 36415; 74176; 80048; 80076; 81001; 82550; 83605; 83690; 84484; 85025; 85610; 85730; 87077; 87088; 87186; 93005; 96372; 96374; 96375; 96376; 99285; J0500; J2270; J2405 ×2

== ENCOUNTER 2020-01-29 11:14 | Emergency (ER) | payer OTHER, MEDICARE ==
[~2020-01-29 11:14] MED LIST changes: -ASPI-555 PO; +ASPI-556 PO; -PANT40TA25 PO; +PANT40TA55 PO
[2020-01-29] MEDS ORDERED: LORAZEPAM 2 MG/ML 1 ML VIAL ONE (12:16)
[2020-01-29] MEDS ORDERED: LIDOCAINE HCL 2% VISCOUS 15 ML UDCUP ONE (12:16)
[2020-01-29] MEDS ORDERED: MAG HYDROX/AL HYDROX/SIMETH ES 30 ML SUSP UDCUP ONE (12:16)
[2020-01-29 12:41] LABS: BASOPHILS % (AUTO) 0.9 % (0.0-5.0); EOSINOPHILS % (AUTO) 2.7 % (0.0-8.0); HEMATOCRIT 41.3 % (36-48); LYMPHOCYTES % (AUTO) 12.4 % (21.0-51.0); MEAN CORPUSCULAR HEMOGLOBIN 28.6 pg (27.0-33.0); MEAN CORPUSCULAR HGB CONC 33.7 g/dL (32.0-36.0); MONOCYTES % (AUTO) 7.2 % (3.0-13.0); NEUTROPHILS % (AUTO) 76.4 % (40.0-77.0); PLATELET COUNT (AUTO) 280 K/uL (130-400); RED BLOOD CELL COUNT(AUTO) 4.86 MIL/uL (4.00-5.50); WHITE BLOOD COUNT (AUTO) 6.8 K/uL (4.8-10.8)
[2020-01-29 12:54] LABS: POTASSIUM 3.3 mmol/L (3.5-5.1)
[2020-01-29 13:06] LABS: ALBUMIN 3.9 g/dL (3.5-5.0); BILIRUBIN,TOTAL 0.7 mg/dL (0.2-1.0); TOTAL PROTEIN, SERUM 7.5 g/dL (6.0-8.3)
== END 2020-01-29 15:58 | disposition home or self-care (01) ==
LOC: EDH 11:14
DX: R10.9 Unspecified abdominal pain (principal); E78.00 Pure hypercholesterolemia, unspecified; I10 Essential (primary) hypertension; Z88.5 Allergy status to narcotic agent
CPT/HCPCS: 36415; 74018; 80053; 83690; 84484; 85025; 93005; 96372; 99285; J2060

== ENCOUNTER 2020-01-30 13:22 | Emergency (ER) | payer OTHER, MEDICARE ==
[2020-01-30] MEDS ORDERED: SODIUM CHLORIDE 0.9% 1000ML 1,000 ML IV ONE (13:23)
[2020-01-30] MEDS ORDERED: PANTOPRAZOLE 40 MG/VIAL IVP ONE (13:23)
[2020-01-30] MEDS ORDERED: ONDANSETRON ODT 4 MG TAB ONE (13:59)
[2020-01-30] MEDS ORDERED: LIDOCAINE HCL 2% VISCOUS 15 ML UDCUP ONE (13:59)
[2020-01-30] MEDS ORDERED: MAG HYDROX/AL HYDROX/SIMETH ES 30 ML SUSP UDCUP ONE (13:59)
[2020-01-30 14:24] LABS: BASOPHILS % (AUTO) 0.9 % (0.0-5.0); EOSINOPHILS % (AUTO) 3.6 % (0.0-8.0); HEMATOCRIT 40.2 % (36-48); LYMPHOCYTES % (AUTO) 15.1 % (21.0-51.0); MEAN CORPUSCULAR HEMOGLOBIN 29.1 pg (27.0-33.0); MEAN CORPUSCULAR HGB CONC 33.6 g/dL (32.0-36.0); MEAN CORPUSCULAR VOLUME 86.6 fL (79-99); MONOCYTES % (AUTO) 6.8 % (3.0-13.0); NEUTROPHILS % (AUTO) 73.1 % (40.0-77.0); PLATELET COUNT (AUTO) 291 K/uL (130-400); RED BLOOD CELL COUNT(AUTO) 4.64 MIL/uL (4.00-5.50); RED CELL DISTRIBUTION WIDTH 13.2 % (11.0-15.5); WHITE BLOOD COUNT (AUTO) 5.8 K/uL (4.8-10.8)
[2020-01-30 14:36] LABS: POTASSIUM 3.2 mmol/L (3.5-5.1)
[2020-01-30 14:41] LABS: ALBUMIN 3.8 g/dL (3.5-5.0); BILIRUBIN,TOTAL 0.6 mg/dL (0.2-1.0); TOTAL PROTEIN, SERUM 7.3 g/dL (6.0-8.3)
[2020-01-30] MEDS ORDERED: SUCRALFATE 1 GM TABLET ONE (15:42)
[2020-01-30] MEDS ORDERED: HYOSCYAMINE SULFATE 0.125 MG TAB.SUBL SL ONE (15:42)
[2020-01-30] MEDS ORDERED: POTASSIUM CHLORIDE 20 MEQ ERTAB PO ONE (15:48)
[2020-01-30] MEDS ORDERED: KETOROLAC TROMETHAMINE 15MG/ML ONE (16:43)
== END 2020-01-30 21:02 | disposition home or self-care (01) ==
LOC: EDH 13:22
DX: R10.13 Epigastric pain (principal); R63.4 Abnormal weight loss; I10 Essential (primary) hypertension; E78.5 Hyperlipidemia, unspecified; Z72.0 Tobacco use; Z88.6 Allergy status to analgesic agent
CPT/HCPCS: 36415; 80053; 83690; 84484; 85025; 96372; 96374; 99284; C9113; J1885; J7030

== ENCOUNTER 2020-05-11 02:34 | Emergency (ER) | payer OTHER, MEDICARE ==
[2020-05-11] MEDS ORDERED: SODIUM CHLORIDE 0.9% 500ML 500 ML IV ONE (02:35)
[2020-05-11] MEDS ORDERED: ONDANSETRON HCL 4 MG/2 ML VIAL ONE (02:52)
[2020-05-11] MEDS ORDERED: PANTOPRAZOLE 40 MG/VIAL ONE (02:52)
[2020-05-11] MEDS ORDERED: MORPHINE SULFATE 4 MG/1ML SYG ONE (02:52)
[2020-05-11 02:56] LABS: BASOPHILS % (AUTO) 0.8 % (0.0-5.0); EOSINOPHILS % (AUTO) 4.1 % (0.0-8.0); HEMATOCRIT 37.9 % (36-48); LYMPHOCYTES % (AUTO) 15.3 % (21.0-51.0); MEAN CORPUSCULAR HEMOGLOBIN 29.1 pg (27.0-33.0); MEAN CORPUSCULAR HGB CONC 33.5 g/dL (32.0-36.0); MEAN CORPUSCULAR VOLUME 86.9 fL (79-99); MONOCYTES % (AUTO) 6.5 % (3.0-13.0); PLATELET COUNT (AUTO) 209 K/uL (130-400); RED BLOOD CELL COUNT(AUTO) 4.36 MIL/uL (4.00-5.50); RED CELL DISTRIBUTION WIDTH 13.2 % (11.0-15.5); WHITE BLOOD COUNT (AUTO) 6.3 K/uL (4.8-10.8)
[2020-05-11 03:05] LABS: CREATININE 0.8 mg/dL (0.5-1.5)
[2020-05-11 03:09] LABS: ALBUMIN 3.5 g/dL (3.5-5.0); BILIRUBIN,TOTAL 0.4 mg/dL (0.2-1.0); TOTAL PROTEIN, SERUM 6.2 g/dL (6.0-8.3)
[2020-05-11 03:14] LABS: INR 0.91 (0.85-1.15); PARTIAL THROMBOPLASTIN TIME 24.6 SEC (26.3-35.5); PROTHROMBIN TIME 9.9 SEC (9.6-11.6)
[2020-05-11 03:19] LABS: B-TYPE NATRIURETIC PEPTIDE 273 pg/mL (0-100)
[2020-05-11] MEDS ORDERED: IOHEXOL-350 75 ML VIAL IV ONE (03:33)
[2020-05-11] MEDS ORDERED: KETOROLAC TROMETHAMINE 15MG/ML ONE (05:02)
[2020-05-11 05:22] LABS: APPEARANCE,URINE Clear (CLEAR); BILIRUBIN,URINE Negative (NEGATIVE); COLOR,URINE Yellow (YELLOW); GLUCOSE, URINE (UA) Negative (NEGATIVE); KETONES,URINE Negative (NEGATIVE); LEUKOCYTE ESTERASE ,URINE Trace (NEGATIVE); NITRATE,URINE Negative (NEGATIVE); OCCULT BLOOD,URINE Negative (NEGATIVE); PROTEIN,URINE Negative (NEGATIVE); UROBILINOGEN,URINE 0.2 mg/dL (0.2-1.0)
[2020-05-11 05:51] LABS: BACTERIA,URINE Rare /HPF (None Seen); RBC,URINE None Seen /HPF (0-1); WBC,URINE 0-1 /HPF (0-1)
[2020-05-11] MEDS ORDERED: FAMOTIDINE/PF 20 MG/2 ML VIAL IV ONE (05:59)
== END 2020-05-11 06:49 | disposition home or self-care (01) ==
LOC: EDH 02:34
DX: R10.13 Epigastric pain (principal); R10.32 Left lower quadrant pain; K29.70 Gastritis, unspecified, without bleeding; I10 Essential (primary) hypertension; E78.00 Pure hypercholesterolemia, unspecified; Z88.6 Allergy status to analgesic agent
CPT/HCPCS: 36415; 71045; 74177; 76705; 80053; 81001; 82550; 83605; 83690; 83880; 84484; 85025; 85610; 85730; 93005; 96361 ×2; 96374; 96375; 99285; C9113; J1885; J2270; J2405; J3490; J7040; Q9967

== ENCOUNTER 2021-01-08 15:07 | Observation (INO) | payer OTHER, MEDICARE ==
[~2021-01-08] VITALS: Ht 157.5 cm; Wt 45.8 kg
[2021-01-08 15:50] LABS: BASOPHILS % (AUTO) 0.6 % (0.0-5.0); EOSINOPHILS % (AUTO) 4.3 % (0.0-8.0); HEMATOCRIT 30.3 % (36-48); LYMPHOCYTES % (AUTO) 13.2 % (21.0-51.0); MEAN CORPUSCULAR HEMOGLOBIN 27.3 pg (27.0-33.0); MEAN CORPUSCULAR VOLUME 88.1 fL (79-99); MONOCYTES % (AUTO) 4.7 % (3.0-13.0); NEUTROPHILS % (AUTO) 76.8 % (40.0-77.0); PLATELET COUNT (AUTO) 317 K/uL (130-400); RED BLOOD CELL COUNT(AUTO) 3.44 MIL/uL (4.00-5.50); RED CELL DISTRIBUTION WIDTH 14.2 % (11.0-15.5); WHITE BLOOD COUNT (AUTO) 7.7 K/uL (4.8-10.8)
[2021-01-08 16:04] LABS: PROTHROMBIN TIME 10.9 SEC (9.6-11.6)
[2021-01-08 16:05] LABS: PARTIAL THROMBOPLASTIN TIME 24.6 SEC (26.3-35.5)
[2021-01-08 16:16] LABS: B-TYPE NATRIURETIC PEPTIDE 176 pg/mL (0-100)
[2021-01-08 16:17] LABS: CREATININE 0.9 mg/dL (0.5-1.5); POTASSIUM 3.8 mmol/L (3.5-5.1)
[2021-01-08 16:22] LABS: ALBUMIN 3.4 g/dL (3.5-5.0); BILIRUBIN,TOTAL 0.6 mg/dL (0.2-1.0); TOTAL PROTEIN, SERUM 6.7 g/dL (6.0-8.3)
[2021-01-08] MEDS ORDERED: ONDANSETRON HCL 4 MG/2 ML VIAL ONE (17:03)
[2021-01-08] MEDS ORDERED: MORPHINE 2 MG SYG (2MG/1ML) ONE (17:03)
[2021-01-08] MEDS ORDERED: FAMOTIDINE/PF 20 MG/2 ML VIAL IV ONE (17:04)
[2021-01-08 18:36] LABS: APPEARANCE,URINE Clear (CLEAR); BILIRUBIN,URINE Negative (NEGATIVE); COLOR,URINE Yellow (YELLOW); GLUCOSE, URINE (UA) Negative (NEGATIVE); KETONES,URINE Negative (NEGATIVE); LEUKOCYTE ESTERASE ,URINE Small (NEGATIVE); NITRATE,URINE Negative (NEGATIVE); OCCULT BLOOD,URINE Trace (NEGATIVE); PROTEIN,URINE Negative (NEGATIVE); UROBILINOGEN,URINE 0.2 mg/dL (0.2-1.0)
[2021-01-08 19:14] LABS: RBC,URINE 0-1 /HPF (0-1)
[2021-01-08 19:15] LABS: BACTERIA,URINE Few /HPF (None Seen); MUCUS,URINE Few LPF (None Seen); SQUAMOUS EPITHELIAL CELL,UR Few /HPF (0-2)
[2021-01-08] MEDS ORDERED: MAG HYDROX/AL HYDROX/SIMETH ES 30 ML SUSP UDCUP ONE (20:09)
[2021-01-08] MEDS ORDERED: LIDOCAINE HCL 2% VISCOUS 15 ML UDCUP ONE (20:09)
[2021-01-08] MEDS ORDERED: ONDANSETRON HCL 4 MG/2 ML VIAL IV PRN (20:45)
[2021-01-08] MEDS ORDERED: SODIUM CHLORIDE 0.9% 1000ML 1,000 ML IV SCH (20:45)
[2021-01-08] MEDS ORDERED: ACETAMINOPHEN 325 MG TAB PO PRN ×2 (20:45)
[2021-01-08 21:06] LABS: HEMOGLOBIN A1C 5.7 % (4.0-6.0)
[2021-01-09] MEDS ORDERED: NITROGLYCERIN 0.4 MG SL TAB SL PRN (06:30)
[2021-01-09] MEDS ORDERED: ZOLPIDEM TARTRATE 5 MG TAB PO PRN (06:30)
[2021-01-09] MEDS ORDERED: GUAIFENESIN-DM 200/20 MG 10 ML PO PRN (06:30)
[2021-01-09] MEDS ORDERED: ONDANSETRON HCL 4 MG/2 ML VIAL IV PRN (06:30)
[2021-01-09] MEDS ORDERED: HYDROMORPHONE 1MG AMP (1MG/ML) IV PRN (06:30)
[2021-01-09] MEDS ORDERED: MAG HYDROX/AL HYDROX/SIMETH ES 30 ML SUSP UDCUP PO PRN (06:30)
[2021-01-09] MEDS ORDERED: LACTULOSE 20 GM/30 ML UDCUP PO PRN (06:30)
[2021-01-09] MEDS ORDERED: ACETAMINOPHEN 325 MG TAB PO PRN ×2 (06:30)
[2021-01-09] MEDS ORDERED: TRAMADOL HCL 50 MG TABLET PO PRN (06:45)
[2021-01-09] MEDS ORDERED: DEXTROSE 50%-WATER 50 ML DISP.SYRIN IV PRN (06:45)
[2021-01-09] MEDS ORDERED: GLUCAGON 1MG KIT 1 MG ML IM PRN (06:45)
[2021-01-09] MEDS ORDERED: ASPIRIN 81MG TAB.CHEW ONE (07:17)
[2021-01-09] MEDS ORDERED: PANTOPRAZOLE SODIUM 40 MG TABLET.DR ONE (07:18)
[2021-01-09] MEDS ORDERED: PANTOPRAZOLE SODIUM 40 MG TABLET.DR PO SCH (07:25)
[2021-01-09] MEDS: INSULIN HUMULIN R 100 UNIT/ML 3ML SQ SCH ×4 (07:30→21:00)
[2021-01-09 08:46] LABS: MEAN CORPUSCULAR HEMOGLOBIN 27.5 pg (27.0-33.0); MEAN CORPUSCULAR VOLUME 88.8 fL (79-99); RED BLOOD CELL COUNT(AUTO) 3.38 MIL/uL (4.00-5.50); RED CELL DISTRIBUTION WIDTH 14.3 % (11.0-15.5); WHITE BLOOD COUNT (AUTO) 6.2 K/uL (4.8-10.8)
[2021-01-09] MEDS ORDERED: FAMOTIDINE/PF 20 MG/2 ML VIAL IV SCH (09:00)
[2021-01-09 09:05] LABS: ALBUMIN 3.1 g/dL (3.5-5.0); BILIRUBIN,DIRECT 0.1 mg/dL (0.0-0.3); BILIRUBIN,TOTAL 0.4 mg/dL (0.2-1.0); CREATININE 0.7 mg/dL (0.5-1.5); POTASSIUM 4.2 mmol/L (3.5-5.1); TOTAL PROTEIN, SERUM 6.3 g/dL (6.0-8.3)
[2021-01-09] MEDS ORDERED: HYDROMORPHONE 1MG AMP (1MG/ML) ONE (10:56)
[2021-01-09] MEDS ORDERED: METRONIDAZOLE 500MG/100ML BAG 100 ML ONE (14:05)
[2021-01-09] MEDS ORDERED: LEVOFLOXACIN 500 MG/D5W 100 ML 100 ML ONE (14:05)
[2021-01-09] MEDS ORDERED: SODIUM CHLORIDE 0.9% 1000ML 1,000 ML IV ONE (14:06)
[2021-01-09 16:08] LABS: HEMATOCRIT 29.3 % (36-48)
[2021-01-09 16:54] VITALS: BP 175/47
[2021-01-09] MEDS: ASPIRIN 81 MG EC TAB PO SCH (17:18)
[2021-01-09] MEDS: LEVOFLOXACIN 500 MG/D5W 100 ML 100 ML IV SCH (17:18)
[2021-01-09] MEDS: METRONIDAZOLE 500MG/100ML BAG 100 ML IVPB SCH ×2 (17:19→21:33)
[2021-01-09] MEDS: SODIUM CHLORIDE 0.9% 1000ML 1,000 ML IV SCH (17:19)
[2021-01-09] MEDS: ATORVASTATIN CALCIUM 20 MG TABLET PO SCH (17:23)
[2021-01-09 20:29] VITALS: BP 160/49
[2021-01-09] MEDS: PANTOPRAZOLE 40 MG/VIAL IVP SCH (21:33)
[2021-01-09 23:25] VITALS: BP 177/43
[2021-01-10] MEDS: LABETALOL 20 MG/4 ML DISP.SYRIN IV PRN ×2 (00:33→08:27)
[2021-01-10 04:06] VITALS: BP 158/54
[2021-01-10] MEDS: METRONIDAZOLE 500MG/100ML BAG 100 ML IVPB SCH ×2 (05:32→14:30)
[2021-01-10] MEDS: SODIUM CHLORIDE 0.9% 1000ML 1,000 ML IV SCH ×2 (05:32→11:55)
[2021-01-10] MEDS: INSULIN HUMULIN R 100 UNIT/ML 3ML SQ SCH ×3 (05:34→16:30)
[2021-01-10 05:52] LABS: HEMATOCRIT 28.2 % (36-48); MEAN CORPUSCULAR HGB CONC 30.9 g/dL (32.0-36.0); MEAN CORPUSCULAR VOLUME 87.6 fL (79-99); RED BLOOD CELL COUNT(AUTO) 3.22 MIL/uL (4.00-5.50); RED CELL DISTRIBUTION WIDTH 14.2 % (11.0-15.5)
[2021-01-10 05:56] LABS: CREATININE 0.7 mg/dL (0.5-1.5); POTASSIUM 3.8 mmol/L (3.5-5.1)
[2021-01-10 07:52] VITALS: BP 183/47
[2021-01-10] MEDS ORDERED: IOHEXOL 350 MG/ML 100ML INFUS..BTL IV ONE (08:14)
[2021-01-10] MEDS ORDERED: MORPHINE 2 MG SYG (2MG/1ML) IVP SCH (09:00)
[2021-01-10] MEDS ORDERED: CLOPIDOGREL BISULFATE 75 MG TAB PO SCH (09:00)
[2021-01-10] MEDS: LEVOFLOXACIN 500 MG/D5W 100 ML 100 ML IV SCH (09:54)
[2021-01-10] MEDS: PANTOPRAZOLE 40 MG/VIAL IVP SCH (09:54)
[2021-01-10] MEDS: ASPIRIN 81 MG EC TAB PO SCH (09:54)
[2021-01-10 12:11] VITALS: BP 126/76
[2021-01-10 16:49] VITALS: BP 141/45
[2021-01-10] MEDS: ATORVASTATIN CALCIUM 20 MG TABLET PO SCH (17:03)
== END 2021-01-10 18:39 | disposition home or self-care (01) ==
LOC: EDH 15:07 → EDHIP 20:31 → 3AH 01-09 15:52
PROVIDERS: ADMIT Internal Medicine; ATTEND Internal Medicine
DX: A04.9 Bacterial intestinal infection, unspecified (principal); I11.0 Hypertensive heart disease with heart failure; I50.22 Chronic systolic (congestive) heart failure; I25.119 Atherosclerotic heart disease of native coronary artery with unspecified angina pectoris; I25.5 Ischemic cardiomyopathy; G89.29 Other chronic pain; E78.00 Pure hypercholesterolemia, unspecified; E78.5 Hyperlipidemia, unspecified; D64.9 Anemia, unspecified; I08.0 Rheumatic disorders of both mitral and aortic valves; I25.2 Old myocardial infarction; K55.9 Vascular disorder of intestine, unspecified; Z87.19 Personal history of other diseases of the digestive system; Z95.1 Presence of aortocoronary bypass graft; Z79.899 Other long term (current) drug therapy; Z88.5 Allergy status to narcotic agent
CPT/HCPCS: 36415 ×3; 71045 ×2; 74174; 74176; 80048; 80053 ×2; 81001; 82150; 82550; 82948 ×7; 83036; 83605; 83690 ×2; 83880; 84484 ×4; 85014; 85018; 85025; 85027 ×2; 85610; 85730; 93005 ×3; 96361; 96365; 96366; 96367; 96375 ×2; 96376; 99285; C9113 ×2; G0378 ×45; J1170; J1956 ×2; J2405; J3490 ×5; J7030 ×2; Q9967; 80076

== ENCOUNTER → 2022-04-11 | Outpatient (CLI) | payer OTHER, MEDICARE ==
[2022-04-11 12:59] LABS: ALBUMIN 3.9 g/dL (3.5-5.0); POTASSIUM 5.4 mmol/L (3.5-5.1); TOTAL PROTEIN, SERUM 7.6 g/dL (6.0-8.3)
== END | disposition home or self-care (01) ==
LOC: LAB 08:08
PROVIDERS: ATTEND Internal Medicine Cardiovascular Disease
DX: I10 Essential (primary) hypertension (principal)
CPT/HCPCS: 36415; 80053

== ENCOUNTER 2022-04-30 08:31 | Day surgery (SDC) | payer OTHER, MEDICARE ==
[2022-04-25 16:20] LABS: APPEARANCE,URINE SL CLOUDY (CLEAR); BILIRUBIN,URINE NEGATIVE (NEGATIVE); COLOR,URINE YELLOW (YELLOW); GLUCOSE, URINE (UA) NEGATIVE (NEGATIVE); KETONES,URINE 5 mg/dL (NEGATIVE); LEUKOCYTE ESTERASE ,URINE MODERATE (NEGATIVE); NITRATE,URINE POSITIVE (NEGATIVE); OCCULT BLOOD,URINE SMALL (NEGATIVE); PH,URINE 5.5 (5.0-8.0); PROTEIN,URINE NEGATIVE (NEGATIVE); UROBILINOGEN,URINE 0.2 mg/dL (0.2-1.0)
[2022-04-25 16:20] LABS: BASOPHILS % (AUTO) 0.7 % (0.0-5.0); EOSINOPHILS % (AUTO) 5.7 % (0.0-8.0); HEMATOCRIT 33.9 % (36-48); LYMPHOCYTES % (AUTO) 14.5 % (21.0-51.0); MEAN CORPUSCULAR VOLUME 90.4 fL (79-99); MONOCYTES % (AUTO) 5.4 % (3.0-13.0); NEUTROPHILS % (AUTO) 73.1 % (40.0-77.0); PLATELET COUNT (AUTO) 356 K/uL (130-400); RED BLOOD CELL COUNT(AUTO) 3.75 MIL/uL (4.00-5.50); RED CELL DISTRIBUTION WIDTH 15.3 % (11.0-15.5); WHITE BLOOD COUNT (AUTO) 9.4 K/uL (4.8-10.8)
[2022-04-25 16:29] LABS: POTASSIUM 4.2 mmol/L (3.5-5.1)
[2022-04-25 16:30] LABS: INR 0.93 (0.85-1.15); PROTHROMBIN TIME 10.2 SEC (9.6-11.6)
[2022-04-25 16:31] LABS: PARTIAL THROMBOPLASTIN TIME 26.2 SEC (26.3-35.5)
[2022-04-25 16:41] LABS: BACTERIA,URINE Moderate /HPF (None Seen); RBC,URINE 0-1 /HPF (0-1)
[2022-04-25 16:44] LABS: SQUAMOUS EPITHELIAL CELL,UR Few /HPF (0-2); TRANSITIONAL EPI CELLS,URINE Few /HPF (None Seen)
[2022-04-25 16:48] LABS: B-TYPE NATRIURETIC PEPTIDE 68 pg/mL (0-100)
[2022-04-27 11:19] VITALS: BP 162/59
[~2022-04-30] VITALS: Ht 152.4 cm; Wt 50.3 kg
[~2022-04-30 08:31] MED LIST changes: +0.9% NACL 500ML IV.SOLN 500 ML IV SCH; +ALEN70TA80 PO; +AMLO-257 PO; +ATOR40TA71 PO; +DONE5TAB33 PO; +FERR-72 PO; +ISOS30TA92 PO; +LISI40TA9 PO; -NITR0.4T50 SL; +PANT40TA54 PO; -PANT40TA55 PO; -ROSU10TA28 PO
[2022-04-30] MEDS ORDERED: 0.9%NACL 1000ML 1,000 ML IV ONE (09:18)
[2022-04-30] MEDS ORDERED: LIDOCAINE HCL 400MG/20ML VIAL ONE (12:04)
[2022-04-30] MEDS ORDERED: MEPERIDINE-PF 25 MG/ML SYG ONE (12:04)
[2022-04-30] MEDS ORDERED: HEPARIN 10,000 UNIT/10ML (1,000 UNIT/ML) VIAL ONE (12:04)
[2022-04-30] MEDS ORDERED: IOHEXOL-350 50ML VIAL IV ONE (12:04)
[2022-04-30] MEDS ORDERED: IOHEXOL 350 MG/ML 100ML INFUS..BTL IV ONE (12:04)
[2022-04-30] MEDS ORDERED: MIDAZOLAM HCL 1 MG/ML 2ML VIAL ONE (12:18)
== END 2022-04-30 13:44 | disposition home or self-care (01) ==
LOC: DAH 08:31
PROVIDERS: ATTEND Internal Medicine Cardiovascular Disease
DX: I25.10 Atherosclerotic heart disease of native coronary artery without angina pectoris (principal); I11.0 Hypertensive heart disease with heart failure; I50.9 Heart failure, unspecified; Z95.1 Presence of aortocoronary bypass graft; E78.5 Hyperlipidemia, unspecified; Z79.01 Long term (current) use of anticoagulants; Z79.899 Other long term (current) drug therapy; Z88.8 Allergy status to other drugs, medicaments and biological substances; Z90.710 Acquired absence of both cervix and uterus; Z90.49 Acquired absence of other specified parts of digestive tract; Z53.8 Procedure and treatment not carried out for other reasons
CPT/HCPCS: 71045; 80048; 83880; 85025; 85610; 85730; 87077; 87088; 87186; 81001; 36415; 93005; C1894; C1893; J3490; J7030; J2250; J2175; J1644; Q9967; A4663; A4606; A4223 ×2

== ENCOUNTER 2022-10-24 12:02 | Emergency (ER) | payer OTHER, MEDICARE ==
[~2022-10-24] VITALS: Ht 142.2 cm; Wt 52.2 kg
[~2022-10-24 12:02] MED LIST changes: -0.9% NACL 500ML IV.SOLN 500 ML IV SCH
[2022-10-24 12:10] VITALS: BP 125/58
[2022-10-24 12:52] LABS: BASOPHILS % (AUTO) 0.9 % (0.0-5.0); LYMPHOCYTES % (AUTO) 20.2 % (21.0-51.0); MEAN CORPUSCULAR HEMOGLOBIN 28.9 pg (27.0-33.0); MEAN CORPUSCULAR HGB CONC 31.3 g/dL (32.0-36.0); MEAN CORPUSCULAR VOLUME 92.5 fL (79-99); MONOCYTES % (AUTO) 6.7 % (3.0-13.0); NEUTROPHILS % (AUTO) 66.8 % (40.0-77.0); PLATELET COUNT (AUTO) 292 K/uL (130-400); RED BLOOD CELL COUNT(AUTO) 3.46 MIL/uL (4.00-5.50); RED CELL DISTRIBUTION WIDTH 14.9 % (11.0-15.5); WHITE BLOOD COUNT (AUTO) 5.4 K/uL (4.8-10.8)
[2022-10-24 12:59] LABS: POTASSIUM 4.4 mmol/L (3.5-5.1)
[2022-10-24 13:05] LABS: ALBUMIN 3.5 g/dL (3.5-5.0); TOTAL PROTEIN, SERUM 6.8 g/dL (6.0-8.3)
[2022-10-24] MEDS ORDERED: ACETAMINOPHEN 500 MG TABLET PO ONE (14:00)
== END 2022-10-24 14:25 | disposition home or self-care (01) ==
LOC: EDH 12:02
DX: G89.29 Other chronic pain (principal); M54.50 Low back pain, unspecified
CPT/HCPCS: 36415; 72100; 80053; 85025

== ENCOUNTER 2022-12-01 09:53 | Emergency (ER) | payer OTHER, MEDICARE ==
[~2022-12-01] VITALS: Ht 149.9 cm; Wt 54.4 kg
[2022-12-01 10:17] LABS: EOSINOPHILS % (AUTO) 3.5 % (0.0-8.0); HEMATOCRIT 33.3 % (36-48); LYMPHOCYTES % (AUTO) 17.1 % (21.0-51.0); MEAN CORPUSCULAR HEMOGLOBIN 28.8 pg (27.0-33.0); MEAN CORPUSCULAR HGB CONC 31.5 g/dL (32.0-36.0); MEAN CORPUSCULAR VOLUME 91.2 fL (79-99); MONOCYTES % (AUTO) 4.3 % (3.0-13.0); NEUTROPHILS % (AUTO) 73.8 % (40.0-77.0); PLATELET COUNT (AUTO) 300 K/uL (130-400); RED BLOOD CELL COUNT(AUTO) 3.65 MIL/uL (4.00-5.50); RED CELL DISTRIBUTION WIDTH 14.3 % (11.0-15.5); WHITE BLOOD COUNT (AUTO) 6.1 K/uL (4.8-10.8)
[2022-12-01] MEDS ORDERED: MORPHINE 2 MG SYG IVP ONE ×2 (10:30→11:30)
[2022-12-01] MEDS ORDERED: ONDANSETRON 4MG INJ IVP ONE (10:30)
[2022-12-01 10:31] LABS: CREATININE 1.2 mg/dL (0.5-1.5); POTASSIUM 4.9 mmol/L (3.5-5.1)
[2022-12-01 10:37] LABS: ALBUMIN 3.7 g/dL (3.5-5.0); TOTAL PROTEIN, SERUM 7.3 g/dL (6.0-8.3)
[2022-12-01 10:56] LABS: APPEARANCE,URINE CLOUDY (CLEAR); BILIRUBIN,URINE NEGATIVE (NEGATIVE); COLOR,URINE LIGHT-YELLOW (YELLOW); GLUCOSE, URINE (UA) NEGATIVE (NEGATIVE); KETONES,URINE NEGATIVE (NEGATIVE); LEUKOCYTE ESTERASE ,URINE 500 Leu/uL (NEGATIVE); NITRATE,URINE NEGATIVE (NEGATIVE); PROTEIN,URINE NEGATIVE (NEGATIVE); UROBILINOGEN,URINE 0.2 mg/dL (0.2-1.0)
[2022-12-01 11:22] LABS: BACTERIA,URINE Moderate /HPF (None Seen); RBC,URINE 0-1 /HPF (0-1); SQUAMOUS EPITHELIAL CELL,UR Rare /HPF (0-2); WBC,URINE 26-50 /HPF (0-1)
[2022-12-01] MEDS ORDERED: IOHEXOL-350 75 ML VIAL IV ONE (12:51)
[2022-12-01] MEDS ORDERED: NITROGLYCERIN 0.4 MG SL TAB SL ONE (13:47)
[2022-12-01] MEDS ORDERED: CEFTRIAXONE 1G VIAL IVP ONE (14:30)
[2022-12-01 15:19] VITALS: BP 180/54
[2022-12-01] MEDS ORDERED: CEPH500T PO (15:20)
== END 2022-12-01 15:53 | disposition home or self-care (01) ==
LOC: EDH 09:53
DX: N39.0 Urinary tract infection, site not specified (principal); E78.00 Pure hypercholesterolemia, unspecified; I10 Essential (primary) hypertension; Z79.82 Long term (current) use of aspirin; Z79.899 Other long term (current) drug therapy; Z88.5 Allergy status to narcotic agent; Z20.822 Contact with and (suspected) exposure to COVID-19
CPT/HCPCS: 99284; 74177; 96374; 71045; 96375; 87635; 84484 ×2; 80053; 83690; 85025; 87077; 87088; 87186; 87804 ×2; 81001; 36415; 96376; 93005 ×2; C9803; J0696; J2405; Q9967

== ENCOUNTER 2024-04-23 19:41 | Inpatient (IN) | payer MEDICARE ==
[~2024-04-23] VITALS: Ht 157.5 cm; Wt 58.9 kg
[~2024-04-23 19:41] MED LIST changes: +CEPH500T PO
[2024-04-23 20:20] LABS: BASOPHILS # (AUTO) 0.03 K/uL (0.00-0.20); BASOPHILS % (AUTO) 0.3 % (0.0-5.0); EOSINOPHILS # (AUTO) 0.15 K/uL (0.00-0.70); EOSINOPHILS % (AUTO) 1.5 % (0.0-8.0); HEMATOCRIT 36.2 % (36-48); IMMATURE GRANULOCYTE ABSOLUTE 0.05 K/uL (0-1); LYMPHOCYTES # (AUTO) 0.8 K/uL (1.0-4.8); LYMPHOCYTES % (AUTO) 8.2 % (21.0-51.0); MEAN CORPUSCULAR HEMOGLOBIN 28.6 pg (27.0-33.0); MEAN CORPUSCULAR VOLUME 89.2 fL (79-99); MONOCYTES # (AUTO) 0.5 K/uL (0.1-1.0); MONOCYTES % (AUTO) 4.7 % (3.0-13.0); NEUTROPHILS # (AUTO) 8.4 K/uL (1.8-7.7); NEUTROPHILS % (AUTO) 84.8 % (40.0-77.0); PLATELET COUNT (AUTO) 248 K/uL (130-400); RED BLOOD CELL COUNT(AUTO) 4.06 MIL/uL (4.00-5.50); RED CELL DISTRIBUTION WIDTH 13.4 % (11.0-15.5); WHITE BLOOD COUNT (AUTO) 9.9 K/uL (4.8-10.8)
[2024-04-23] MEDS ORDERED: CHOL-34 PO (20:26)
[2024-04-23] MEDS ORDERED: DULO30CA52 PO (20:26)
[2024-04-23] MEDS ORDERED: TRAZ-185 PO (20:26)
[2024-04-23] MEDS ORDERED: LIDOP TP (20:26)
[2024-04-23] MEDS ORDERED: ISOS30TA92 PO (20:26)
[2024-04-23] MEDS ORDERED: DONE5TAB5 PO (20:26)
[2024-04-23] MEDS ORDERED: FERS325 PO (20:26)
[2024-04-23] MEDS ORDERED: CLON0.5T4 PO (20:26)
[2024-04-23] MEDS ORDERED: AMLO2.5T4 PO (20:26)
[2024-04-23] MEDS ORDERED: CYAN-106 PO (20:26)
[2024-04-23] MEDS ORDERED: ATOR40TA71 PO (20:26)
[2024-04-23] MEDS ORDERED: PANT40TA PO (20:26)
[2024-04-23] MEDS ORDERED: LISI40TA9 PO (20:26)
[2024-04-23] MEDS ORDERED: ALEN70TA80 PO (20:26)
[2024-04-23] MEDS ORDERED: MAGN400O17 PO (20:26)
[2024-04-23] MEDS ORDERED: SENN8.6T32 PO (20:26)
[2024-04-23] MEDS ORDERED: TRAM50TA4 PO (20:26)
[2024-04-23] MEDS ORDERED: DOCU100C33 PO (20:26)
[2024-04-23] MEDS: FENTanyl CITRate PF 50 MCG/1 ML 2ML VIAL IVP STA (20:31)
[2024-04-23 20:32] LABS: INR 0.96 (0.85-1.15); PROTHROMBIN TIME 10.4 SEC (9.6-11.6)
[2024-04-23 20:34] LABS: PARTIAL THROMBOPLASTIN TIME 27.9 SEC (26.3-35.5)
[2024-04-23] MEDS ORDERED: IOHEXOL-350 75 ML VIAL IV ONE (20:38)
[2024-04-23] MEDS: FENTanyl CITRate PF 50 MCG/1 ML 2ML VIAL IVP ONE (22:32)
[2024-04-24] VITALS (19 sets, daily range): BP systolic 118–176; BP diastolic 53–86; PULSE 65–97; RESP 15–20; TEMP 97.2–100.3; O2SAT 93
[2024-04-24] MEDS ORDERED: NITROGLYCERIN 0.4 MG SL TAB SL PRN (02:00)
[2024-04-24] MEDS: cefTRIAXone 1G VIAL IV SCH (02:07)
[2024-04-24] MEDS: morPHINE 2 MG SYG IV PRN (02:27)
[2024-04-24] MEDS: hydrALAZine 20MG/ML VIAL IV PRN (02:28)
[2024-04-24 07:02] LABS: BASOPHILS # (AUTO) 0.02 K/uL (0.00-0.20); BASOPHILS % (AUTO) 0.4 % (0.0-5.0); EOSINOPHILS # (AUTO) 0.02 K/uL (0.00-0.70); EOSINOPHILS % (AUTO) 0.4 % (0.0-8.0); IMMATURE GRANULOCYTE ABSOLUTE 0.04 K/uL (0-1); LYMPHOCYTES # (AUTO) 0.4 K/uL (1.0-4.8); LYMPHOCYTES % (AUTO) 8.1 % (21.0-51.0); MEAN CORPUSCULAR HEMOGLOBIN 28.5 pg (27.0-33.0); MEAN CORPUSCULAR HGB CONC 32.7 g/dL (32.0-36.0); MEAN CORPUSCULAR VOLUME 87.1 fL (79-99); MONOCYTES # (AUTO) 0.3 K/uL (0.1-1.0); MONOCYTES % (AUTO) 5.2 % (3.0-13.0); NEUTROPHILS # (AUTO) 4.4 K/uL (1.8-7.7); NEUTROPHILS % (AUTO) 85.1 % (40.0-77.0); PLATELET COUNT (AUTO) 232 K/uL (130-400); RED BLOOD CELL COUNT(AUTO) 3.79 MIL/uL (4.00-5.50); RED CELL DISTRIBUTION WIDTH 13.5 % (11.0-15.5); WHITE BLOOD COUNT (AUTO) 5.2 K/uL (4.8-10.8)
[2024-04-24 07:07] LABS: APPEARANCE,URINE CLEAR (CLEAR); BILIRUBIN,URINE NEGATIVE (NEGATIVE); COLOR,URINE LIGHT-YELLOW (YELLOW); GLUCOSE, URINE (UA) NEGATIVE (NEGATIVE); KETONES,URINE NEGATIVE (NEGATIVE); LEUKOCYTE ESTERASE ,URINE NEGATIVE Leu/uL (NEGATIVE); NITRATE,URINE NEGATIVE (NEGATIVE); PROTEIN,URINE NEGATIVE (NEGATIVE); UROBILINOGEN,URINE 0.2 mg/dL (0.2-1.0)
[2024-04-24 07:16] LABS: ADD UA MICROSCOPIC NO
[2024-04-24 07:36] LABS: ALBUMIN 3.1 g/dL (3.5-5.0); BILIRUBIN,TOTAL 0.7 mg/dL (0.2-1.0); MAGNESIUM 1.9 mg/dL (1.80-2.40); POTASSIUM 4.5 mmol/L (3.5-5.1); TOTAL PROTEIN, SERUM 6.8 g/dL (6.0-8.3)
[2024-04-24] MEDS: LISINOPRIL 40 MG TABLET PO SCH (09:00)
[2024-04-24] MEDS ORDERED: MAGNESIUM HYDROXIDE 30 ML/UDCUP PO PRN (09:00)
[2024-04-24] MEDS: doCUSate SODIUM 100 MG CAP PO SCH (09:00)
[2024-04-24] MEDS ORDERED: traMADol HCL 50 MG TABLET PO PRN (09:00)
[2024-04-24] MEDS: CYANOCOBALAMIN (VITAMIN B-12) 1,000 MCG TABLET PO SCH (09:00)
[2024-04-24] MEDS: LIDOCAINE 5% TOPICAL PATCH TP SCH (09:00)
[2024-04-24] MEDS: PANTOPrazole 40 MG TAB DR PO SCH (09:00)
[2024-04-24] MEDS: amLODIPine 2.5 MG TAB PO SCH (09:00)
[2024-04-24] MEDS: trAZOdone HCL 50 MG TAB PO SCH (09:00)
[2024-04-24] MEDS: duloXETine HCL 30 MG CAP PO SCH (09:00)
[2024-04-24] MEDS: ISOSORBIDE MONO 30MG SR TAB PO SCH (09:00)
[2024-04-24] MEDS: ondanSETRON 4MG INJ IV PRN (10:38)
[2024-04-24] MEDS: LACTATED RINGERS 1000ML 1,000 ML IV ONE (11:57)
[2024-04-24] MEDS ORDERED: ketaMINE 50MG/ML SYRINGE 50 MG/ML DISP.SYRIN ONE (12:05)
[2024-04-24] MEDS ORDERED: ePHEDrine SULFate 50 MG/ML AMPULE ONE (12:06)
[2024-04-24] MEDS ORDERED: LIDOCAINE PF 100MG/5ML (2%) SYRINGE 5ML ONE (12:22)
[2024-04-24] MEDS ORDERED: proPOFol 10 MG/ML 20ML VIAL IV ONE (12:22)
[2024-04-24] MEDS ORDERED: rocuRONium bROMide 10MG/1ML 5ML VL ONE (12:22)
[2024-04-24] MEDS ORDERED: FENTanyl CITRate PF 50 MCG/1 ML 2ML VIAL ONE (13:01)
[2024-04-24 13:07] LABS: ABG BASE EXCESS -2.3 mmol/L (-2.0-3.0); ABG HCO3 22.5 mmol/L (21.0-28.0); ABG OXYGEN SATURATION 99.6 % (94.0-98.0); ABG PCO2 38 mmHg (32-45); ABG PH 7.386 (7.350-7.450); CARBON MONOXIDE 0.1 % (0.5-1.5); DEVICE COMMENT OMAR CRNA ALINE; HHb 0.4; PO2, ARTERIAL BG 394.6 mmHg (83.0-108.0); VENT MODE, BG VENT (ROOM AIR)
[2024-04-24] MEDS: SUGAMMADEX SODIUM 200 MG/2 ML VIAL IV ONE (13:32)
[2024-04-24] MEDS ORDERED: ondanSETRON 4MG INJ ONE (13:39)
[2024-04-24] MEDS ORDERED: PoTASSium chl 10% ELIXIR 20MEQ 20 MEQ/15 ML UDCUP PO PRN (14:00)
[2024-04-24] MEDS ORDERED: FERROUS FUMARATE 324 MG TABLET PO PRN (14:00)
[2024-04-24] MEDS ORDERED: PoTASSium chloRIDE 20MEQ/100ML 100 ML IV PRN (14:00)
[2024-04-24] MEDS ORDERED: CALCIUM CARB 500MG PO PRN (14:00)
[2024-04-24] MEDS ORDERED: PoTASSium chloRIDE 20MEQ ER 20 MEQ ERTAB PO PRN (14:00)
[2024-04-24] MEDS: ceFAZolin SODIUM 2 GM VIAL IVPB SCH (16:13)
[2024-04-24] MEDS: 0.9%NACL 1000ML 1,000 ML IV SCH (16:13)
[2024-04-24] MEDS: ketOROlac 15MG/ML VIAL (15MG/ML) IV PRN (16:23)
[2024-04-24] MEDS: DiphenhydrAMINE HCL 50 MG/ML VIAL IV SCH (17:39)
[2024-04-24] MEDS: HALOPERIDOL INJ 5 MG/ML VIAL IM PRN (17:42)
[2024-04-24] MEDS: atorVAStatin 40 MG TABLET PO SCH (20:15)
[2024-04-24] MEDS: doNEPEZil HCL 5 MG TAB PO SCH (20:15)
[2024-04-24] MEDS ORDERED: FAMOTIDINE 20MG VIAL IV SCH (21:00)
[2024-04-25] VITALS (9 sets, daily range): BP systolic 124–143; BP diastolic 55–65; PULSE 78–102; RESP 16–19; TEMP 97.9–101.2; O2SAT 97
[2024-04-25] MEDS: clonazePAM 0.5 MG TABLET PO PRN (00:59)
[2024-04-25] MEDS: traMADol HCL 50 MG TABLET PO PRN (01:00)
[2024-04-25 06:49] LABS: BASOPHILS # (AUTO) 0.02 K/uL (0.00-0.20); BASOPHILS % (AUTO) 0.4 % (0.0-5.0); EOSINOPHILS # (AUTO) 0.15 K/uL (0.00-0.70); EOSINOPHILS % (AUTO) 3.2 % (0.0-8.0); HEMATOCRIT 26.4 % (36-48); IMMATURE GRANULOCYTE ABSOLUTE 0.03 K/uL (0-1); LYMPHOCYTES # (AUTO) 0.5 K/uL (1.0-4.8); LYMPHOCYTES % (AUTO) 10.4 % (21.0-51.0); MEAN CORPUSCULAR HEMOGLOBIN 28.5 pg (27.0-33.0); MEAN CORPUSCULAR HGB CONC 32.2 g/dL (32.0-36.0); MEAN CORPUSCULAR VOLUME 88.6 fL (79-99); MONOCYTES # (AUTO) 0.4 K/uL (0.1-1.0); MONOCYTES % (AUTO) 8.9 % (3.0-13.0); NEUTROPHILS # (AUTO) 3.6 K/uL (1.8-7.7); NEUTROPHILS % (AUTO) 76.5 % (40.0-77.0); PLATELET COUNT (AUTO) 174 K/uL (130-400); RED BLOOD CELL COUNT(AUTO) 2.98 MIL/uL (4.00-5.50); RED CELL DISTRIBUTION WIDTH 13.9 % (11.0-15.5); WHITE BLOOD COUNT (AUTO) 4.7 K/uL (4.8-10.8)
[2024-04-25 07:06] LABS: INR 1.01 (0.85-1.15); PROTHROMBIN TIME 10.9 SEC (9.6-11.6)
[2024-04-25] MEDS: (Cholecalciferol (Vitamin D3) (Vitamin D3) 25 MCG) PO SCH (09:00)
[2024-04-25 09:27] LABS: ALBUMIN 2.5 g/dL (3.5-5.0); BILIRUBIN,TOTAL 0.7 mg/dL (0.2-1.0); CREATININE 0.9 mg/dL (0.5-1.0); POTASSIUM 4.4 mmol/L (3.5-5.1); TOTAL PROTEIN, SERUM 5.7 g/dL (6.0-8.3)
[2024-04-25] MEDS: polyETHYLene GLYCol 3350 17 GM POWD.PACK PO SCH (10:08)
[2024-04-25] MEDS: FERROUS SULFATE 325 MG TABLET.DR PO SCH (10:08)
[2024-04-25] MEDS: HEParin 5,000 UNIT VIAL SQ SCH (10:12)
[2024-04-25] MEDS: PSYLLIUM SEED 1 EACH PACKET PO SCH (11:52)
[2024-04-25] MEDS: DiphenhydrAMINE HCL 50 MG/ML VIAL IV PRN (14:41)
[2024-04-25] MEDS: acetaMINOPHEN 325 MG TAB PO PRN (19:03)
[2024-04-26] VITALS: BP 102/47; PULSE 72; RESP 18; TEMP 98.3
[2024-04-26 04:00] VITALS: BP 149/59; PULSE 80; RESP 18; TEMP 99
[2024-04-26 05:29] LABS: INR 0.98 (0.85-1.15); PROTHROMBIN TIME 10.6 SEC (9.6-11.6)
[2024-04-26 05:42] LABS: ALBUMIN 2.2 g/dL (3.5-5.0); BILIRUBIN,DIRECT 0.2 mg/dL (0.0-0.3)
[2024-04-26 05:46] LABS: BILIRUBIN,TOTAL 0.6 mg/dL (0.2-1.0); CREATININE 0.8 mg/dL (0.5-1.0); MAGNESIUM 2.1 mg/dL (1.80-2.40); POTASSIUM 4.3 mmol/L (3.5-5.1); TOTAL PROTEIN, SERUM 5.5 g/dL (6.0-8.3)
[2024-04-26 06:53] LABS: BASOPHILS # (AUTO) 0.03 K/uL (0.00-0.20); BASOPHILS % (AUTO) 0.5 % (0.0-5.0); EOSINOPHILS % (AUTO) 5.3 % (0.0-8.0); HEMATOCRIT 24.7 % (36-48); IMMATURE GRANULOCYTE ABSOLUTE 0.05 K/uL (0-1); LYMPHOCYTES # (AUTO) 0.6 K/uL (1.0-4.8); LYMPHOCYTES % (AUTO) 10.5 % (21.0-51.0); MEAN CORPUSCULAR HEMOGLOBIN 28.3 pg (27.0-33.0); MEAN CORPUSCULAR HGB CONC 30.8 g/dL (32.0-36.0); MEAN CORPUSCULAR VOLUME 91.8 fL (79-99); MONOCYTES # (AUTO) 0.5 K/uL (0.1-1.0); MONOCYTES % (AUTO) 9.1 % (3.0-13.0); NEUTROPHILS # (AUTO) 4.2 K/uL (1.8-7.7); NEUTROPHILS % (AUTO) 73.7 % (40.0-77.0); PLATELET COUNT (AUTO) 170 K/uL (130-400); RED BLOOD CELL COUNT(AUTO) 2.69 MIL/uL (4.00-5.50); RED CELL DISTRIBUTION WIDTH 14.6 % (11.0-15.5); WHITE BLOOD COUNT (AUTO) 5.7 K/uL (4.8-10.8)
[2024-04-26 08:00] VITALS: BP 104/46; PULSE 81; RESP 17; TEMP 98.9; O2SAT 96
[2024-04-26 12:00] VITALS: BP 113/45; PULSE 82; RESP 17; TEMP 97.9
[2024-04-26] MEDS ORDERED: BisaCODYL 5 MG TABLET.DR PO PRN (14:00)
[2024-04-26 16:00] VITALS: BP_SYST 127; BP_SYST 133; BP_DIAS 56; BP_DIAS 77; PULSE 78; PULSE 87; RESP 17; TEMP 100; TEMP 99
[2024-04-26 20:00] VITALS: BP 128/50; PULSE 96; RESP 18; TEMP 98.8; O2SAT 99
[2024-04-27 04:00] VITALS: BP 112/52; PULSE 86; RESP 19; TEMP 97.7
[2024-04-27 05:52] LABS: BASOPHILS # (AUTO) 0.02 K/uL (0.00-0.20); BASOPHILS % (AUTO) 0.4 % (0.0-5.0); EOSINOPHILS # (AUTO) 0.31 K/uL (0.00-0.70); EOSINOPHILS % (AUTO) 6.3 % (0.0-8.0); HEMATOCRIT 23.5 % (36-48); IMMATURE GRANULOCYTE ABSOLUTE 0.03 K/uL (0-1); LYMPHOCYTES # (AUTO) 0.6 K/uL (1.0-4.8); LYMPHOCYTES % (AUTO) 11.8 % (21.0-51.0); MEAN CORPUSCULAR HEMOGLOBIN 28.2 pg (27.0-33.0); MEAN CORPUSCULAR HGB CONC 31.1 g/dL (32.0-36.0); MEAN CORPUSCULAR VOLUME 90.7 fL (79-99); MONOCYTES # (AUTO) 0.4 K/uL (0.1-1.0); MONOCYTES % (AUTO) 8.5 % (3.0-13.0); NEUTROPHILS # (AUTO) 3.6 K/uL (1.8-7.7); NEUTROPHILS % (AUTO) 72.4 % (40.0-77.0); PLATELET COUNT (AUTO) 162 K/uL (130-400); RED BLOOD CELL COUNT(AUTO) 2.59 MIL/uL (4.00-5.50); RED CELL DISTRIBUTION WIDTH 14.2 % (11.0-15.5); WHITE BLOOD COUNT (AUTO) 4.9 K/uL (4.8-10.8)
[2024-04-27 05:55] LABS: INR <= 0.93 (0.85-1.15); PROTHROMBIN TIME 9.9 SEC (9.6-11.6)
[2024-04-27 05:56] LABS: CREATININE 0.9 mg/dL (0.5-1.0)
[2024-04-27 08:00] VITALS: BP 132/53; PULSE 60; RESP 18; TEMP 99; O2SAT 93
[2024-04-27] MEDS: doNEPEZil HCL 5 MG TAB PO SCH (11:01)
[2024-04-27 12:00] VITALS: BP 122/54; PULSE 75; RESP 18; TEMP 99.2
[2024-04-27] MEDS ORDERED: BisaCODYL 10 MG SUPP.RECT RC PRN (14:00)
[2024-04-27 16:00] VITALS: BP 110/58; PULSE 82; RESP 20; TEMP 98.5
[2024-04-27 20:00] VITALS: BP 104/62; PULSE 97; RESP 17; TEMP 97.8; O2SAT 96
[2024-04-27] MEDS: clonazePAM 0.5 MG TABLET PO SCH (20:33)
[2024-04-28] VITALS (7 sets, daily range): BP systolic 106–131; BP diastolic 47–67; PULSE 87–100; RESP 18–20; TEMP 98.5–99.7; O2SAT 95–97
[2024-04-28 03:53] LABS: BASOPHILS # (AUTO) 0.03 K/uL (0.00-0.20); BASOPHILS % (AUTO) 0.6 % (0.0-5.0); EOSINOPHILS % (AUTO) 3.8 % (0.0-8.0); HEMATOCRIT 22.7 % (36-48); IMMATURE GRANULOCYTE ABSOLUTE 0.03 K/uL (0-1); LYMPHOCYTES # (AUTO) 0.6 K/uL (1.0-4.8); LYMPHOCYTES % (AUTO) 12.2 % (21.0-51.0); MEAN CORPUSCULAR HEMOGLOBIN 28.2 pg (27.0-33.0); MEAN CORPUSCULAR HGB CONC 31.7 g/dL (32.0-36.0); MONOCYTES # (AUTO) 0.5 K/uL (0.1-1.0); MONOCYTES % (AUTO) 9.2 % (3.0-13.0); NEUTROPHILS # (AUTO) 3.9 K/uL (1.8-7.7); NEUTROPHILS % (AUTO) 73.6 % (40.0-77.0); PLATELET COUNT (AUTO) 196 K/uL (130-400); RED BLOOD CELL COUNT(AUTO) 2.55 MIL/uL (4.00-5.50); RED CELL DISTRIBUTION WIDTH 14.2 % (11.0-15.5); WHITE BLOOD COUNT (AUTO) 5.2 K/uL (4.8-10.8)
[2024-04-28] MEDS: clonazePAM 0.5 MG TABLET PO SCH (16:46)
[2024-04-29] VITALS: BP 116/42; PULSE 78; RESP 18; TEMP 98.5
[2024-04-29 04:00] VITALS: BP 122/56; PULSE 76; RESP 18; TEMP 98.5
[2024-04-29 04:50] LABS: BASOPHILS # (AUTO) 0.03 K/uL (0.00-0.20); BASOPHILS % (AUTO) 0.6 % (0.0-5.0); EOSINOPHILS # (AUTO) 0.31 K/uL (0.00-0.70); EOSINOPHILS % (AUTO) 5.8 % (0.0-8.0); HEMATOCRIT 24.1 % (36-48); IMMATURE GRANULOCYTE ABSOLUTE 0.04 K/uL (0-1); LYMPHOCYTES # (AUTO) 0.8 K/uL (1.0-4.8); LYMPHOCYTES % (AUTO) 15.1 % (21.0-51.0); MEAN CORPUSCULAR HEMOGLOBIN 28.3 pg (27.0-33.0); MEAN CORPUSCULAR HGB CONC 31.5 g/dL (32.0-36.0); MEAN CORPUSCULAR VOLUME 89.6 fL (79-99); MONOCYTES # (AUTO) 0.4 K/uL (0.1-1.0); MONOCYTES % (AUTO) 7.8 % (3.0-13.0); NEUTROPHILS # (AUTO) 3.8 K/uL (1.8-7.7); PLATELET COUNT (AUTO) 239 K/uL (130-400); RED BLOOD CELL COUNT(AUTO) 2.69 MIL/uL (4.00-5.50); RED CELL DISTRIBUTION WIDTH 14.4 % (11.0-15.5); WHITE BLOOD COUNT (AUTO) 5.4 K/uL (4.8-10.8)
[2024-04-29 08:00] VITALS: BP 131/47; PULSE 73; RESP 18; TEMP 98.3; O2SAT 95
[2024-04-29 12:00] VITALS: BP 121/57; PULSE 78; RESP 18; TEMP 98.9
[2024-04-29] MEDS ORDERED: clonazePAM 0.5 MG TABLET PO SCH (16:00)
[2024-05-01] MEDS ORDERED: ALENDRONATE SODIUM 35 MG TAB PO SCH (06:30)
== END 2024-04-29 15:30 | DRG 480 ==
LOC: EDH 19:41 → EDHIP 04-24 01:51 → 4CH 04-24 15:00
PROVIDERS: ADMIT Hospitalist; ATTEND Hospitalist
PROC: 0QS706Z Reposition Left Upper Femur with Intramedullary Internal Fixation Device, Open Approach (ICD-10-PCS; principal; 2024-04-24 12:25)
DX: S72.142A Displaced intertrochanteric fracture of left femur, initial encounter for closed fracture (principal); G93.41 Metabolic encephalopathy; I50.22 Chronic systolic (congestive) heart failure; I13.0 Hypertensive heart and chronic kidney disease with heart failure and stage 1 through stage 4 chronic kidney disease, or unspecified chronic kidney disease; N39.0 Urinary tract infection, site not specified; E87.1 Hypo-osmolality and hyponatremia; N18.30 Chronic kidney disease, stage 3 unspecified; I25.10 Atherosclerotic heart disease of native coronary artery without angina pectoris; F03.90 Unspecified dementia, unspecified severity, without behavioral disturbance, psychotic disturbance, mood disturbance, and anxiety; I08.0 Rheumatic disorders of both mitral and aortic valves; D64.9 Anemia, unspecified; E83.51 Hypocalcemia; K21.9 Gastro-esophageal reflux disease without esophagitis; F32.A Depression, unspecified; E78.00 Pure hypercholesterolemia, unspecified; H91.93 Unspecified hearing loss, bilateral; I25.5 Ischemic cardiomyopathy; W18.30XA Fall on same level, unspecified, initial encounter; Y93.89 Activity, other specified; I25.2 Old myocardial infarction; Y99.8 Other external cause status; Y92.129 Unspecified place in nursing home as the place of occurrence of the external cause; Z87.891 Personal history of nicotine dependence; Z90.49 Acquired absence of other specified parts of digestive tract; Z88.5 Allergy status to narcotic agent
CPT/HCPCS: 36415; 70450; 73501; 73503; 73552; 74177; 80048; 80053; 80076; 81003; 82140; 82435; 82803; 82947; 82948; 83605; 83735; 84132; 84295; 84484; 85018; 85025; 85610; 85730; 86850; 86900; 86901; 93005; 93306; 93356; 96374; 96376; C1713; G0378; J0360; J0696; J1200; J1630; J1644; J1885; J2001; J2270; J2405; J2704; J3010; J3490; J7120; Q9967; A4216; A4222; A4223; A4649; A4930; A6219; C1776; J0690